=== PATIENT | male | born 1990 | race Caucasian/White ===

== ENCOUNTER 2018-11-22 12:10 | Inpatient (IN) ==
[2018-11-22] MEDS ORDERED: METOCLOPRAMIDE HCL INJ 5 MG/ML 2 ML VIAL IV STA (12:34)
[2018-11-22] MEDS ORDERED: SODIUM CHLORIDE 0.9% 1000ML 1,000 ML IV ONE ×2 (12:34→14:16)
[2018-11-22] MEDS ORDERED: DiphenhydrAMINE HCL 50 MG/ML VIAL IV STA (12:34)
[2018-11-22 13:00] LABS: iSTAT Ionized Calcium 1.1 mmol/l (1.12-1.32)
[2018-11-22] MEDS ORDERED: LACTATED RINGER'S 1,000 ML IV ONE (13:05)
[2018-11-22] MEDS ORDERED: PROCHLORPERAZINE 5 MG in SYRINGE 4 ML IV ONE (14:16)
[2018-11-22] MEDS ORDERED: PROCHLORPERAZINE 5 MG/ML 2 ML VIAL ONE (14:21)
--- NOTE | 2018-11-22 15:42 | Surgery Consultation ---
Date of Consultation November 22, 2018 Assessment & Plan (1) Intractable nausea and vomiting: Transverse colon stenosis, no significant obstruction. Abdomen is benign. Being admitted for IVF, anti-emetics. GI eval for eventual colonoscopy, inpatient or outpatient. Supervising Physician Co-Signing Physician Notes pnt S&E, labs and imaging reviewed, agree with above. 27 year old male with epigastric pain and nausea/vomiting, no diarrhea. Similar episode 2 weeks ago, also had single bloody bm. VSS, abd soft, ttp in epigastrium, no peritonitis. wbc elevated yesterday to 14, CT with transverse colon narrowing concerning for crohn's, no obstruction, free air or abscess. Mother with UC requring TPC and end ileostomy, grandmother with UC as well. No surgical intervention indicated at this time, dispo per ED and hospitalist. Recommend GI consult and colonoscopy. Surgery will sign off, call with questions or concerns. History of Present Illness History of Present Illness 27 y/o male with N/V sent to ED for dehydration. This is his second episode in the past month. The first was attributed to enteritis, improved after several days. He did have bloody BM at that time. Has not had recent BM, has had some flatus. His mother has ileostomy for UC. Allergies Allergy/AdvReac Type Severity Reaction Status Date / Time Penicillins Allergy Unknown RXN A Verified 11/22/18 13:03 BABY, HIS MOM SAYS HE IS NOT ALLERGIC Home Medications Home Medications Medication Instructions Recorded Confirmed Type No Known Home Medications 11/22/18 11/22/18 History Patient History Medical History Hx of hemorrhoids No significant past medical history Surgical History Hx of hernia repair History of lumbar fusion Family History Other Colon cancer Diverticulitis Ulcerative colitis Social History Preferred Language: Latvian marital status: Single Current Living Situation: Alone current occupational status: employed Feels Safe at Home: Yes Smoking Status: Never smoker Hx Alcohol Use: No Review of Systems Constitutional: no fever and no chills Gastrointestinal: + abdominal pain (upper abdomen), + nausea and + vomiting Physical Exam Vital Signs (Past 24 Hours): Last Vital Signs Temp 37.0 C 11/22/18 12:12 Pulse 81 11/22/18 14:00 Resp 22 11/22/18 14:00 BP 140/83 11/22/18 14:00 Pulse Ox 99 11/22/18 14:00 Cardiovascular: Rate/Rhythm: not tachycardic Gastrointestinal (Abdomen): Inspection/Auscultation: abdomen not distended Percussion/Palpation: + abdomen tender (mild mid upper abdomen) and abdomen soft Results & Data Diagnostic Findings CT abd pelvis IV con only CLINICAL HISTORY: 27 years-old Male presenting with DEHYDRATION,ACUTE ABD PAIN, CAN NOT TOLERATE ORAL CONTRAST. TECHNIQUE: Multidetector CT of the abdomen and pelvis was performed after the administration of intravenous contrast. IV contrast: 94 L of Optiray 320. One or more dose lowering techniques were used consistent with the principles of ALARA (as low as reasonably achievable), including automatic exposure control, mA or kV adjustment to individual patient size, and/or use of iterative reconstruction. COMPARISON: None. CT DOSE (mGy.cm): The estimated cumulative dose is 719.59 mGycm. FINDINGS: Patent Chemist topogram: Posterior lumbar fusion hardware from L4 to S1 with interbody spacers. Lung bases: Normal heart size. No pericardial or pleural effusion. No focal infiltrate or nodule at the lung bases. Liver: Normal morphology. Vague hypodensity along the fissure for the ligamentum teres.. Patent hepatic vasculature. Biliary: No intrahepatic or extrahepatic biliary ductal dilatation. Normal gallbladder. Pancreas: Moderate parenchymal atrophy. Spleen: Normal. Splenules noted. Adrenal glands: Normal. Kidneys and ureters: Well-defined hypodense lesion in the left kidney likely simple cyst. No nephrolithiasis or hydronephrosis. Ureters nondistended. Bladder: Incompletely evaluated secondary to underdistention. Pelvic organs: Prostate and seminal vesicles normal. Bowel: Apparent stenosis of the mid transverse colon with intramural fat deposition and prominence of the mesenteric fat (series 3 image 196). Mild upstream distention. The appendix is normal. The terminal ileum is normal. No gross evidence of small bowel wall thickening. No perienteric or pericolonic inflammatory change. No bowel obstruction. Peritoneal cavity: No free fluid or intraperitoneal gas. Lymph nodes: No enlarged lymph nodes in the abdomen or pelvis. Vasculature: Aorta and IVC patent and normal in caliber. Abdominal wall: Surgical clips noted in the right lower quadrant possibly indicating prior right inguinal hernia repair. Musculoskeletal: Postsurgical changes of bilateral transpedicular screw and bashir fixation of L4-S1 with interbody spacers and laminectomy defects. Expected postsurgical appearance of the lumbar subcutaneous incision site. IMPRESSION: 1. Apparent stenosis of the mid transverse colon with intramural fat deposition and prominence of surrounding mesenteric fat along with mild immediate upstream distention. 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 No convincing evidence of acute inflammation at this time. No penetrating disease. No bowel obstruction. 2. No appendicitis. Electronically signed by: Fabiano Coe M.D. 11/22/2018 11:19 AM (1) Intractable nausea and vomiting Vomiting type: unspecified Qualified Code(s): R11.2 - Nausea with vomiting, unspecified
[2018-11-22] MEDS ORDERED: methylPREDNISolone 125 MG/2 ML VIAL IV SCH (17:13)
--- NOTE | 2018-11-22 17:22 | History & Physical Report ---
Date of Service November 22, 2018 Assessment & Plan (1) Intractable nausea and vomitin27 y/o m who denies any medical history. Presented to the ER 2 weeks prior with nausea and vomiting thought due to enteritis. He was treated with IVF, antiemetics and subsequently DCd from the ER when he improved clinically. He states that the morning after he had a bowel movement with some gross blood which did not recur. He has had poor PO intake since DC, lower abdominal pain and less frequent bowel movements. He states that he has not had any bowel movements for 4 days now. The prior day he again developed nausea and vomiting and describes a possible low-grade fever as well. He returned to the ER and a CT of the abdomen was obtained which demonstrated apparent stenosis of the mid transverse, intramural fat and mild upstream distention. 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 The pt denies any long-term symptoms. It is noted that his mother has a history of UC with ileostomy placement. Initial labs are notable for hypokalemia. 1) N/V, abdominal pain - colonic stenosis on CT without complete obstruction or evidence of infection. We will begin treatment with IV steroids which can be converted to PO when tolerated. We have consulted gastroenterology as he will need a colonoscopy for diagnostic confirmation and may need to start a biologic. He will be treated with IVF, analgesics and antiemetics until tolerating PO, or may remain NPO if endoscopy is imminent. 2) Hpokalemia - replaced and Mg provided Full code - SCDs Total time for this admit including review of labs, meds, imaging, records - discussion with pt and ER attending - 40 min Present on Admission?: Yes History of Present Illness Chief Complaint: Intractable N/V Primary Care Provider: Kvng Gilliam Jr, DO 27 y/o m who denies any medical history. Presented to the ER 2 weeks prior with nausea and vomiting thought due to enteritis. He was treated with IVF, antiemetics and subsequently DCd from the ER when he improved clinically. He states that the morning after he had a bowel movement with some gross blood which did not recur. He has had poor PO intake since DC, lower abdominal pain and less frequent bowel movements. He states that he has not had any bowel movements for 4 days now. The prior day he again developed nausea and vomiting and describes a possible low-grade fever as well. He returned to the ER and a CT of the abdomen was obtained which demonstrated apparent stenosis of the mid transverse, intramural fat and mild upstream distention. 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 The pt denies any long-term symptoms. It is noted that his mother has a history of UC with ileostomy placement. 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[employer]" Family: Mother with UC, uncle with colon CA Allergies Allergy/AdvReac Type Severity Reaction Status Date / Time Penicillins Allergy Unknown RXN A Verified 11/22/18 13:03 BABY, HIS MOM SAYS HE IS NOT ALLERGIC Home Medications Home Medications Medication Instructions Recorded Confirmed Type No Known Home Medications 11/22/18 11/22/18 History Past Med/Surg History Medical History Hx of hemorrhoids No significant past medical history Surgical History Hx of hernia repair History of lumbar fusion Family History Other Colon cancer Diverticulitis Ulcerative colitis Social History Preferred Language: Malay Communication Ability: Effective Recreation Facility Attendant Required: No Beliefs That Will Affect Care: None marital status: Single Current Living Situation: Parent and Family current occupational status: employed Feels Safe at Home: Yes Smoking Status: Never smoker Hx Alcohol Use: No Hx Substance Use: No Review of Systems Gen: Reoprts a low grade fever (99.6 per PCP), denies night sweats, rigors, fatigue, malaise, weight loss/gain ENT: Denies congestion, throat pain, hearing loss Eyes: Denies acute visual changes CV: Denies CP, palpitations Pulmonary: Denies SOB, cough, wheezing GI:Has bnot had a BM for 4 days, poor leonid then n/v > 1 day. Lower abdominal pain x 2 months. Neuro: Denies acute or unilateral weakness, acute gait impairment, headache or acute visual changes Musculoskeletal: Denies joint pain, inflammation Endocrine: Denies polydipsia, polyuria Skin: Denies acute rashes or ulcers Physical Exam Vital Signs (Past 24 Hours): Last Vital Signs Temp 37.0 C 11/22/18 12:12 Pulse 83 11/22/18 17:02 Resp 16 11/22/18 17:02 BP 140/91 11/22/18 17:02 Pulse Ox 98 11/22/18 17:02 Physical Exam: General: AAO x 3, no distress ENT: No erythema or exudates, no thrush Eyes: LIS, EOMI Head and neck: Normocephalic, atraumatic, No JVD, neck is supple. Chest/heart: Nontender, S1,2, RRR, no murmurs, no gallops Lungs: CTAB, no wheezing or crackles Abdomen: Slightly firm without significant tenderness to light palpation Neuro: AAO x 3, speech is clear, no unilateral weakness or loss of sensation, coordination intact Musculoskeletal: No joint inflammation, muscle tenderness, FROM Skin: No acute rashes or ulcers Extremities: No clubbing, cyanosis, edema (1) Intractable nausea and vomiting Vomiting type: unspecified Qualified Code(s): R11.2 - Nausea with vomiting, unspecified
[2018-11-22] MEDS: POTASSIUM CHLORIDE / WTR 10 MEQ/100 ML PLCT IV SCH ×4 (17:28→22:25)
[2018-11-22] MEDS: D5W AND LACTATED RINGERS 1,000 ML IV SCH (17:29)
[2018-11-22] MEDS ORDERED: MAGNESIUM SULFATE / D5W 1 GM/100 ML BAG IV ONE (17:30)
--- NOTE | 2018-11-22 18:32 | Emergency Department Note ---
Entered by Sabiha Clemente acting as a scribe for History of Present Illness General Chief complaint: Dehydration Stated complaint: ULCER/CHRONS/HYDRATION Time Seen by Provider: 11/22/18 12:18 Source: patient History of Present Illness Onset (ago): week(s) 2 Location: abdomen Pain Consistency: + other (episode) Maximum Pain Intensity: 6 Quality: + other (dehydration) Relieved By: not by medication (Zofran, Phenergan) Associated symptoms: + denies other symptoms (change in color in bowel movements), + nausea/vomiting and + other (back pain, weight loss, cold sweats); no fever/chills (fever) The patient is a 27 year old male who presents to the Emergency Room with complaints of an episode of dehydration starting 2 weeks ago. The patient states that he was at the ED 2 weeks ago because he was having horrible vomiting and was unable to move his bowels. He states that they gave him some fluids and nausea medications. He states that while here he finally moved his bowels after 4 days and there was a little blood in it. He states that due to his history of hemorrhoids, they assumed it was from that. He reports that since then he has not had any hematochezia. The patient states that after leaving the ED it took 2-3 days to feel better. He reports that he was good for 5 days then before the symptoms started again. He states that he got in contact with Dr. Gilliam, his PCP, who had him do blood work yesterday and a CT today. He reports that he was supposed to be directly admitted to the hospital for his bowels narrowing, but was told that it couldn�t happen and he had to come to the ED for further testing. He notes that he has tried taking Zofran and Phenergan at home, but it has offered no relief. The patient complains of losing 40 lbs since March and 18 lbs in the last 2 months and cold sweats when he vomits. He notes that he had back surgery in September and everything was going well, but since vomiting, the pain has been exacerbated. He notes that he has been off pain medication for 3 weeks. The patient denies fever, change in color in his bowel movements, ever having a colonoscopy, and a history of bowel problems. Home Medications Home Medications Medication Instructions Recorded Confirmed Type No Known Home Medications 11/22/18 11/22/18 History Allergies Allergy/AdvReac Type Severity Reaction Status Date / Time Penicillins Allergy Unknown RXN A Verified 11/22/18 13:03 BABY, HIS MOM SAYS HE IS NOT ALLERGIC Past Med/Surg History Medical History Hx of hemorrhoids No significant past medical history Surgical History Hx of hernia repair History of lumbar fusion Family History Other Colon cancer Diverticulitis Ulcerative colitis Social History Preferred Language: Polish Communication Ability: Effective Drag Out Man Required: No Beliefs That Will Affect Care: None marital status: Single Current Living Situation: Parent and Family current occupational status: employed Feels Safe at Home: Yes Smoking Status: Never smoker Hx Alcohol Use: No Hx Substance Use: No Review of Systems See HPI for pertinent positives & negatives. and A total of 10 systems reviewed and were otherwise negative Physical Exam Vital Signs Vital Signs - 24 hr 11/22/18 12:12 11/22/18 12:55 11/22/18 13:00 Temperature 37.0 C Temperature Source Oral Sepsis Recent Fever Within 48 Hours Yes Sepsis Action Taken by Nursing No Action Required Pulse Rate 92 H 96 H 87 Pulse Rate [Finger] Pulse Rate from SpO2 Sensor 97 H 86 Respiratory Rate 20 16 29 H Respiratory Effort / Characteristics Non-Labored Respiratory Depth Normal Blood Pressure 130/92 Blood Pressure [Left Arm] Blood Pressure Mean 104 Blood Pressure Mean [Left Arm] Pulse Oximetry 99 99 95 Oxygen Delivery Method Room Air Room Air Room Air 11/22/18 13:24 11/22/18 13:30 11/22/18 14:00 Temperature Temperature Source Sepsis Recent Fever Within 48 Hours Sepsis Action Taken by Nursing Pulse Rate 77 78 81 Pulse Rate [Finger] Pulse Rate from SpO2 Sensor 78 80 82 Respiratory Rate 19 21 22 Respiratory Effort / Characteristics Respiratory Depth Blood Pressure 141/89 H 140/83 Blood Pressure [Left Arm] Blood Pressure Mean 106 102 Blood Pressure Mean [Left Arm] Pulse Oximetry 97 97 99 Oxygen Delivery Method Room Air Room Air Room Air 11/22/18 14:30 11/22/18 15:00 11/22/18 15:30 Temperature Temperature Source Sepsis Recent Fever Within 48 Hours Sepsis Action Taken by Nursing Pulse Rate 87 78 100 H Pulse Rate [Finger] Pulse Rate from SpO2 Sensor 87 78 99 H Respiratory Rate 17 19 24 Respiratory Effort / Characteristics Respiratory Depth Blood Pressure 132/82 Blood Pressure [Left Arm] Blood Pressure Mean 98 Blood Pressure Mean [Left Arm] Pulse Oximetry 97 96 98 Oxygen Delivery Method Room Air Room Air Room Air 11/22/18 16:00 11/22/18 16:09 11/22/18 17:02 Temperature Temperature Source Sepsis Recent Fever Within 48 Hours Sepsis Action Taken by Nursing Pulse Rate 85 83 Pulse Rate [Finger] Pulse Rate from SpO2 Sensor 87 Respiratory Rate 25 H 16 Respiratory Effort / Characteristics Respiratory Depth Blood Pressure 132/86 140/91 Blood Pressure [Left Arm] Blood Pressure Mean 101 Blood Pressure Mean [Left Arm] Pulse Oximetry 98 98 Oxygen Delivery Method Room Air Room Air Room Air 11/22/18 17:13 Temperature 37.0 C Temperature Source Oral Sepsis Recent Fever Within 48 Hours Sepsis Action Taken by Nursing Pulse Rate Pulse Rate [Finger] 72 Pulse Rate from SpO2 Sensor Respiratory Rate 19 Respiratory Effort / Characteristics Respiratory Depth Blood Pressure Blood Pressure [Left Arm] 132/81 Blood Pressure Mean Blood Pressure Mean [Left Arm] 98 Pulse Oximetry 97 Oxygen Delivery Method Room Air GENERAL: alert, ill appearing, well nourished, no distress, non-toxic EYE EXAM: normal conjunctiva, PERRL and EOM's grossly intact OROPHARYNX: no exudate, no erythema, lips, buccal mucosa, and tongue normal and mucous membranes are very dry NECK: supple, no nuchal rigidity, no adenopathy, non-tender LUNGS: Clear to auscultation. Normal chest wall mechanics HEART: no murmurs, S1 normal and S2 normal ABDOMEN: abdomen soft, non-tender, normo-active bowel sounds, no masses, no rebound or guarding. BACK: Back is symmetrical on inspection and there is no deformity, no midline tenderness, no CVA tenderness. SKIN: no rashes and no bruising UPPER EXTREMITIES: upper extremities are grossly normal. FROM, nml pulses b/l. LOWER EXTREMITIES: No pitting edema. FROM, nml pulses b/l. NEURO EXAM: Normal sensorium, cranial nerves II-XII grossly intact, normal speech, no gross weakness of arms, no gross weakness of legs. Course 1222: Past medical records reviewed. The patient was evaluated in room C8, and a complete history and physical examination were performed. 1353: I discussed the patient's case with Dr. Gilliam- HERMIOL. He feels that the patient needs to be admitted for continued IV hydration and a GI consult for his new diagnosis of Crohn's colitis. 1400: I reevaluated the patient and he is still nauseated. I updated him on his test results and the treatment plan. He verbally agrees and understands. 1426: I discussed the patient's case with Dr. Jai CHAUDHARY Hospitalist. He states that he will further manage the patient as long as GI is okay with keeping the patient here. 1435: I discussed the patient's case with YOLY Dasilva. She states that she will look at the CT and call Dr. Odom. 1448: I spoke to Dr. Jai Power again. He states that we need to clarify with surgery if pt requires surgical intervention due to the stenosis. 1459: I discussed the patient's case with REJI Murphy. He states that he will look at the patient's CT and call back. 1517: I discussed the patient's case with REJI Murphy again. He states that the patient does not need an urgent surgical procedure. He feels that the patient needs a GI ocnult and a colonoscopy. 1521: I updated Dr. Odom's PA on these consults at this time. 1535: I spoke to Dr. Escalona- General Surgeon. He evaluated the patient at bedside and agrees that he needs a GI consult. 1538: I reviewed the patient's case with Dr[facility]ai [facility]. He will evaluate the patient for further management. Consultations Consultation #1: I discussed the patient's case with Dr. Lisa AKHTAR. He feels that the patient needs to be admitted for continued IV hydration and a GI consult for his new diagnosis of Crohn's colitis. Time: 13:53 Consultation #2: I discussed the patient's case with Dr. Jai [facility]. He states that he will further manage the patient as long as GI is okay with keeping the patient here. Time: 14:26 Consultation #3: I discussed the patient's case with YOLY Dasilva. She states that she will look at the CT and call Dr. Odom to sort it all out. Time: 14:35 Additional Consultation(s): 1448: I spoke to Dr. Jai Orona again. He states that I should talk to surgery. 1459: I discussed the patient's case with Anderson Smith PA-C -General Surgery. He states that he will look at the patient's CT and call back. 1517: I discussed the patient's case with Anderson Smith PA-C -General Surgery again. He states that the patient does not need an urgent surgical procedure. He feels that the patient needs a GI ocnult and a colonoscopy. 1521: I updated Dr. Odom's PA on these consults at this time. 1535: I spoke to Dr. Escalona- General Surgeon. He evaluated the patient at bedside and agrees that he needs a GI ocnsult. 1538: I reviewed the patient's case with Dr. Jai CHAUDHARY Hospitalist. He will evaluate the patient for further management. Administered Medications Dextrose/Lactated Ringer's (D5w And Lactated Ringers) 1,000 mls @ 125 mls/hr IV .Q8H SHAMIR Stop: 11/23/18 17:29 Last Admin: 11/22/18 17:29 Dose: 125 mls/hr Documented by: [id number] Potassium Chloride (K Jesus / Wtr) 10 meq in 100 mls @ 100 mls/hr IV Q1H SHAMIR Stop: 11/22/18 21:29 Last Admin: 11/22/18 17:28 Dose: 100 mls/hr Documented by: [id number] Discontinued Medications Diphenhydramine HCl (Benadryl) 25 mg IV NOW STA Stop: 11/22/18 12:35 Last Admin: 11/22/18 12:48 Dose: 25 mg Documented by: [id number] Sodium Chloride (Nss 1000ml) 1,000 mls @ 999 mls/hr IV .Q1H1M ONE Stop: 11/22/18 13:34 Last Infusion: 11/22/18 13:28 Dose: 0 mls/hr Documented by: [id number] Admin: 11/22/18 12:47 Dose: 999 mls/hr Documented by: [id number] Lactated Ringer's (Lr) 1,000 mls @ 999 mls/hr IV .Q1H1M ONE Stop: 11/22/18 14:05 Last Infusion: 11/22/18 14:23 Dose: 0 mls/hr Documented by: [id number] Admin: 11/22/18 13:28 Dose: 999 mls/hr Documented by: [id number] Prochlorperazine 5 mg/ Syringe 5 mls @ 5 mls/min IV ONE ONE Stop: 11/22/18 14:17 Last Admin: 11/22/18 14:24 Dose: Not Given Documented by: [id number] Sodium Chloride (Nss 1000ml) 1,000 mls @ 999 mls/hr IV .Q1H1M ONE Stop: 11/22/18 15:16 Last Infusion: 11/22/18 15:33 Dose: 0 mls/hr Documented by: [id number] Admin: 11/22/18 14:23 Dose: 999 mls/hr Documented by: [id number] Metoclopramide HCl (Reglan) 10 mg IV NOW STA Stop: 11/22/18 12:35 Last Admin: 11/22/18 12:48 Dose: 10 mg Documented by: [id number] Prochlorperazine (Compazine) Confirm Administered Dose 10 mg .ROUTE .STK-MED ONE Stop: 11/22/18 14:22 Last Admin: 11/22/18 14:23 Dose: 5 mg Documented by: [id number] Medical Decision Making Differential Diagnosis Differential diagnosis: Etiologies such as gastroenteritis, food borne illness, infections, appendicitis, diverticulitis, inflammatory bowel disease, obstruction, GI bleed, biliary pathology, cardiac process, intracranial process, as well as others were entertained. Medical Records Attestation: I reviewed the patient's medical records. Home Medications Current Medication List: was personally reviewed by me Laboratory Data Attestation: I reviewed the patient's lab results. Lab Results 11/22/18 Range/Units 12:47 POC Hgb 17.0 (14.0-18.0) g/dl POC Hct 50 (42-52) % POC Sodium 137 (135-144) mEq/L POC Potassium 3.0 L (3.3-5.0) mEq/L POC Chloride 91 L (101-112) mEq/L POC Total CO2 28 (24-31) mEq/l POC Anion Gap 21.0 (16-25) mmol/L POC BUN 16 (7-18) mg/dl POC Creatinine 1.0 (0.6-1.3) mg/dl POC Glucose (other) 117 H (70-99) mg/dl POC Ioniz Calcium [place] 1.10 L (1.12-1.32) mmol/l Blood Pressure Blood Pressure Findings: Elevated blood pressure Blood Pressure Disposition: further management by hospitalist MDM Narrative Patient here appearing clinically dehydrated and ill-appearing, and on outpatient labs and imaging as ordered by the patient's PCP, patient found to have stenotic narrowing of the mid transverse colon with likely Crohn's colitis. This is a new diagnosis for the patient as he has never been diagnosed with any intestinal problems or had a colonoscopy previously. He does however have significant family history of ulcerative colitis and colon cancer. Patient here was hydrated with multiple liters of IV fluids and did receive several antiemetics in addition to the 2 different antiemetics he had tried at home without improvement. No evidence of DKA, AK I, acute electrolyte abnormality. No evidence of bacteremia/sepsis. I suspect given several recent episodes including one which prompted a ER visit of abdominal pain and nausea vomiting it was more likely related to the patient's undiagnosed Crohn's disease. I do not suspect bacteremia/sepsis. Case discussed with hospitalist. Concern for possible surgical intervention which would require transfer versus ability to medically manage here with GI input and likely colonoscopy. After several phone calls and discussions, patient to be admitted here medically with GI consult. Hospitalist will add additional orders after discussion including steroids. Patient was hemodynamically stable while in the emergency room. Impression & Plan Intractable nausea and vomiting, Abdominal pain, Recent weight loss, Stenosis of colon Discharge Plan Visit Data *Final* Discharge Date/Time: 11/22/18 17:02 Chief Complaint: Dehydration Stated Complaint: ULCER/CHRONS/HYDRATION ED Provider: Kamryn Escalante Discharge Problem: Intractable nausea and vomiting, Abdominal pain, Recent weight loss, Stenosis of colon Patient Disposition: Admitted As Inpatient Discharge Instructions Interventions: ED Discharge Assessment Last Done: 11/22/18 17:02 Discharge Problem: Intractable nausea and vomiting Qualifiers: Vomiting type: unspecified Qualified Code(s): R11.2 - Nausea with vomiting, unspecified Abdominal pain Qualifiers: Abdominal location: unspecified location Qualified Code(s): R10.9 - Unspecified abdominal pain The scribe's documentation has been prepared under my direction and personally reviewed by me in its entirety. I confirm that the note above accurately reflects all work, treatment, procedures, and medical decision making performed by me.
[2018-11-22] MEDS: methylPREDNISolone 40 MG in SYRINGE 0 ML IV SCH (19:28)
[2018-11-22] MEDS: MoRPHine SULFATE 4 MG/ML 1 ML CARP\\VIAL IV PRN (19:42)
[2018-11-22] MEDS ORDERED: ZOLPIDEM TARTRATE 5 MG TAB PO ONE (21:27)
[2018-11-23] MEDS: D5W AND LACTATED RINGERS 1,000 ML IV SCH ×2 (01:38→09:30)
[2018-11-23] MEDS: ONDANSETRON INJ 2 MG/ML 2 ML VIAL IV PRN ×2 (03:56→09:29)
[2018-11-23] MEDS: MoRPHine SULFATE 4 MG/ML 1 ML CARP\\VIAL IV PRN ×3 (04:21→18:24)
[2018-11-23] MEDS: methylPREDNISolone 40 MG in SYRINGE 0 ML IV SCH ×2 (06:37→18:28)
[2018-11-23 06:52] LABS: BUN Creatinine Ratio 11.8 (10-20); Calcium 8.4 mg/dl (8.5-10.1); Creatinine Clr Calc Pharmacy 139.4 ml/min; Est GFR (African American) 133.3; Magnesium 2.3 mg/dl (1.8-2.4); Potassium 3.7 mmol/L (3.5-5.1)
[2018-11-23 09:00] LABS: Albumin Level 3.7 gm/dl (3.4-5.0); Bilirubin Direct 0.2 mg/dl (0-0.2); Bilirubin,Total 1.3 mg/dl (0.2-1); Total Protein 7.1 gm/dl (6.4-8.2)
[2018-11-23] MEDS ORDERED: LAVAGE SOLUTION 4000ML PO SCH (09:00)
--- NOTE | 2018-11-23 10:26 | Medical Student Progress Note ---
Date of Service November 23, 2018 Efraín Chandra is a 27 year old male with a pmhx of back pain in hospital day 2 for intractable N/V. No acute events over night. Nausea has subsided and he has had no further episodes of vomiting. He had his first bowel movement in 4 days last night which he described as liquid and denied any blood in stool. He reports that he has decreased abdominal pain with start of prednisone, morphine and anti-emetics. When coming to the hospital, his pain ranged from 4-6 but now describes it as a 2. He reports getting only 2 hours of sleep last night even though he took Ambien. Assessment & Plan (1) Intractable nausea and vomiting: Efraín Chandra is a 27 y/o male with h/o back pain and no significant GI history who is in hospital day 2 for acute onset N/V that is now resolving. He started having mild n/v starting this summer and was at the [facility] ED 2 weeks ago for more significant N/V which was thought to be gastroenteritis. He was given IVF, antiemetics and sent home but then returned again 2 days ago for worsening N/V. He has had a 45 lb weight loss since the summer which he attributes to healthier diet, n/v and spinal surgery. Fhx is significant for mom-UC, aunt- colon cancer, maternal grandmother-diverticulitis and maternal grandmother- colonic tumor. 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 Ddx includes auto-immune inflammatory process, viral or bacterial infection, and malignancy. Significant family history, timeline, and CT findings suggest that patient has had a chronic inflammatory process likely CD which created fibrosis that resulted in a narrowing or obstruction through the GI tract leading to sx, though awaiting colonoscopy results. # N/V, abdominal pain -GI was consulted and pt. will be getting colonoscopy later today -Continue as NPO -Can discontinue the methylprednisolone 40 mg q12 hours as CT scan does not suggest any acute infection and to avoid steroid side effects -Continue morphine 2 mg IV q3H zofran 4 mg q6H prn for pain -Continue polyethylene glycol # Hypokalemia -Resolved Full code - SCDs Total time for this admit including review of labs, meds, imaging, records - discussion with pt and ER attending - 40 min Vomiting type: unspecified Qualified Code(s): R11.2 - Nausea with vomiting, unspecified Supervising Attestation I personally examined the patient and verified all gil points of history and exam, discussed case, and agree with decision making with Ruben Van MS2 Patient seen after colonoscopy, case discussed with Dr. Escobar. Absolutely nothing abnormal on colonoscopy, CT scan most likely false positive. Patient himself notes he still has a degree of nausea, he is only really been able to eat a little bit of shaved ice. Is mostly been feeling lousy for the last 2 weeks, believes it started with stomach bug. Does not really have any significant abdominal pain outside of his epigastrium, mostly just nausea and upper epigastric discomfort Vitals noted, in general he is awake alert oriented x3 fatigued appearing but otherwise in no distress. HEENT normal cephalic atraumatic mucous membranes are moist. Abdomen is soft nondistended not really any upper abdominal tender. Extremities show no sinus clubbing or edema. Skin shows no rashes no pallor or icterus. Intractable nausea and vomiting�fortunately he does not show any colonoscopy appearance of inflammatory bowel disease. Differential for this fairly broad, it may be inflammatory fallout from having had a fairly significant viral gastroenteritis (pathology such as post viral gastritis) or other nonspecific pathology for which supportive care would be the main treatment. In this respect we will give him a GI cocktail, add Pepcid, scheduled Zofran, continue IV fluids, and see how he does with clear liquids/advance as tolerated. GI is ordered a right upper quadrant ultrasound to evaluate for biliary pathology, this seems quite reasonable and we will anticipate results. If it is negative, and supportive care does not improve the situation, then an EGD may need to be warranted. Otherwise as above Subjective Review of Systems All systems reviewed & are unremarkable except as noted in HPI & below Physical Exam Vital Signs (Past 24 Hours): Last Vital Signs Temp 37.0 C 11/23/18 07:27 Pulse 75 11/23/18 07:27 Resp 18 11/23/18 07:27 BP 121/76 11/23/18 07:27 Pulse Ox 95 11/23/18 07:27 Constitutional: WD/WN, vitals as above Respiratory: normal respiratory effort, lungs clear to auscultation Cardiovascular: RRR, no murmur, no edema Rate/Rhythm: not tachycardic Gastrointestinal (Abdomen): Inspection/Auscultation: normal bowel sounds (hypoactive ); abdomen not distended Percussion/Palpation: + abdomen tender (mild mid upper abdomen) and abdomen soft Skin: no rashes, warm and dry Psychiatric: A+Ox3, euthymic affect
[2018-11-23] MEDS ORDERED: ONDANSETRON INJ 2 MG/ML 2 ML VIAL IV STA (14:01)
--- NOTE | 2018-11-23 15:01 | Consultation Report ---
DATE OF CONSULTATION: 11/23/2018 GASTROENTEROLOGY CONSULT NOTE REASON FOR CONSULTATION: Abdominal pain, nausea, vomiting, and abnormal CT scan. HISTORY OF PRESENT ILLNESS: The patient is a 27-year-old who for the last 2 weeks has been experiencing upper abdominal pain, nausea, and vomiting. He was seen in the Emergency Room 2 weeks ago and rehydrated and given some antiemetics and was released. He did okay for a few days, but then his symptoms started to come back, presented back to the Emergency Room early this morning with similar symptoms. He had a CAT scan at this time which showed a stenosis of the mid transverse colon with some proximal distention suggesting a stricture, possibly related to Crohn's disease. Of note is that his mother had a colectomy for ulcerative colitis in the past. GI consultation has been requested for evaluation. PAST MEDICAL HISTORY: Remarkable for lumbar disc disease. He has had 2 different operations on his back, one 10 years ago and then one a couple of months ago for fusion. HOME MEDICATIONS: Include Neurontin and OxyContin. He has not been on any aspirin or nonsteroidals. He is also on amitriptyline at home. ALLERGIES: PENICILLIN. FAMILY HISTORY: Remarkable for mother with ulcerative colitis, status post colectomy, also has a maternal grandmother with colon cancer. SOCIAL HISTORY: The patient works at [employer]. PAST SURGICAL HISTORY: Remarkable for right inguinal hernia repair with mesh in addition to his lumbar surgery. REVIEW OF SYSTEMS: Positive for upper abdominal pain and nausea. Remainder is negative. PHYSICAL EXAMINATION: GENERAL: The patient appears slightly pale, but in no acute distress. ABDOMEN: Shows right lower quadrant scar. Abdomen is soft. There is mild tenderness in the mid epigastric area. No mass or rebound. LUNGS: Clear. HEART: Showed a normal S1 and S2 with regular rate and rhythm without murmurs, rubs, or gallops. LABORATORY DATA: Laboratory shows a white count of 14.67. Bilirubin is 1.3. Most of it is indirect indicating he has Gilbert's. Liver profile is normal. Albumin is normal at 3.7. IMPRESSION: The patient is having abdominal pain, vomiting, and possible transverse colon stricture, possibly Crohn's disease. He is scheduled to undergo a colonoscopy later today for further evaluation.
--- NOTE | 2018-11-23 15:33 | Anesthesiology Consultation ---
Date of Service November 23, 2018 Assessment & Plan Chart Review Chart Review: Acceptable Risk for Surgery and Patient NOT seen in Pre Admission Testing Consults Requested none ASA ASA2 Proposed Anesthesia Anesthesia Type: MAC NPO Date Last Intake of Fluids: 11/22/18 Time Last Intake of Fluids: 00:00 Last Intake of Fluids Comment: Bowel Prep Date Last Intake of Solids: 11/22/18 Time Last Intake of Solids: 00:00 History Surgery Operation Date: 11/23/18 10:05 Proposed Procedures p Colonoscopy Jen Escobar Height/Weight Height: 5 ft 10 in Weight: 93.9 kg Allergies Allergy/AdvReac Type Severity Reaction Status Date / Time Penicillins Allergy Unknown RXN A Verified 11/22/18 13:03 BABY, HIS MOM SAYS HE IS NOT ALLERGIC Medications Home Medications Medication Instructions Recorded Confirmed Last Taken No Known Home Medications 11/22/18 11/22/18 Unknown Active Medications Generic Name Dose Route Start Last Admin Trade Name Freq PRN Reason Stop Dose Admin Methylprednisolone 40 mg/ 0.64 mls @ 1.5 mls/min 11/22/18 18:00 11/23/18 06:37 Syringe IV 12/22/18 17:59 1.5 mls/min Q12H SHAMIR Administration Dextrose/Lactated Ringer's 1,000 mls @ 125 mls/hr 11/22/18 17:30 11/23/18 09:30 D5w And Lactated Ringers IV 11/23/18 17:29 125 mls/hr .Q8H SHAMIR Administration Morphine Sulfate 2 mg 11/22/18 17:13 11/23/18 09:35 Morphine Sulfate IV 12/06/18 17:12 2 mg Q3H PRN Administration Pain Ondansetron HCl 4 mg 11/22/18 17:13 11/23/18 09:29 Zofran IV 12/22/18 17:12 4 mg Q6H PRN Administration Nausea Past Medical History Medical History Obese Hx of hemorrhoids No significant past medical history Past Family History Family History Other Colon cancer Diverticulitis Ulcerative colitis Past Surgical History Surgical History History of lumbar fusion Hx of hernia repair Past Anesthesia History No Hx of Anesthesia Complications and No Family Hx of Anesthesia Complications History of PONV No Motion Sickness Screening History of Motion Sickness: No Social History Smoking Status: Never smoker Do You Dip or Chew Tobacco: No Hx Alcohol Use: No Hx Substance Use: No Exercise / Class Metabolic Activity II 4-5 Yardwork/Stairs/Walk up hill Physical Exam Vital Signs Last Vital Signs Temp 36.8 C 11/23/18 15:00 Pulse 65 11/23/18 15:00 Resp 22 11/23/18 15:00 BP 114/84 11/23/18 15:00 Pulse Ox 98 11/23/18 15:00 Testing Chest X-Ray Date: 08/30/18 Findings: + NAD Laboratory Results 11/23/18 05:34
[2018-11-23] MEDS ORDERED: PROPOFOL IV EMULSION 10 MG/ML 20 ML VIAL IV ONE ×2 (15:59→17:03)
[2018-11-23] MEDS ORDERED: LABETALOL HCL IV 5 MG/ML 20ML IV PRN (16:01)
[2018-11-23] MEDS ORDERED: fentaNYL citrate 100 MCG/2 ML VIAL IV PRN (16:01)
[2018-11-23] MEDS ORDERED: ATROPINE SULFATE 0.1 MG/ML 10ML SYR IV PRN (16:01)
[2018-11-23] MEDS ORDERED: PHENYLEPHRINE 100MCG/ML 5ML SYR IV PRN (16:01)
[2018-11-23] MEDS ORDERED: ePHEDrine sulfate 50 MG/ML AMP IV PRN (16:01)
[2018-11-23] MEDS ORDERED: ONDANSETRON INJ 2 MG/ML 2 ML VIAL IV PRN (16:01)
--- NOTE | 2018-11-23 16:51 | GI REPORT ---
Patient Name: Efraín Chandra Procedure Date: 11/23/2018 4:25 PM Date of : 1990 Admit Type: Inpatient Age: 27 Gender: Male Attending MD: Trung Escobar MD Procedure: Colonoscopy Providers: Trung Escobar MD Referring MD: Referred Self Indications: Epigastric abdominal pain, Abnormal CT of the GI tract Medicines: General Anesthesia Complications: No immediate complications. Estimated Blood Loss: Estimated blood loss: none. Procedure: Pre-Anesthesia Assessment: - Prior to the procedure, a History and Physical was performed, and patient medications, allergies and sensitivities were reviewed. The patient's tolerance of previous anesthesia was reviewed. - The risks and benefits of the procedure and the sedation options and risks were discussed with the patient. All questions were answered and informed consent was obtained. After I obtained informed consent, the scope was passed under direct vision. Throughout the procedure, the patient's blood pressure, pulse, and oxygen saturations were monitored continuously. The scope was introduced through the anus and advanced to the terminal ileum. The colonoscopy was performed without difficulty. The patient tolerated the procedure well. The quality of the bowel preparation was good. Findings: The terminal ileum appeared normal. The entire examined colon appeared normal. Impression: - The examined portion of the ileum was normal. - The entire examined colon is normal. - No specimens collected. Recommendation: - [facility]. Trung Escobar M.D. Trung Escobar MD 11/23/2018 4:51:15 PM This report has been signed electronically. Note Initiated On: 11/23/2018 4:25 PM Number of Addenda: 0 I attest to the content of the Intraoperative Record and orders documented therein, exceptions below {[id number]}
--- NOTE | 2018-11-23 17:03 | Anesthesiology Progress Note ---
Date of Service November 23, 2018 Anesthesia Post Procedure Vital Signs Vital Signs: Temp Pulse Pulse Resp BP BP Pulse Ox 11/23/18 16:55 37.0 C 70 18 82/47 L 97 11/23/18 15:50 37.3 C 66 18 117/77 96 11/23/18 15:00 36.8 C 65 22 114/84 98 11/23/18 07:27 37.0 C 75 18 121/76 95 11/22/18 23:35 36.9 C 89 18 114/68 95 11/22/18 17:13 37.0 C 72 19 132/81 97 Pain Intensity Upper Abdomen: Pain Intensity: 1 Notes Mental Status: alert / awake / arousable Patient Amnestic to Procedure: Yes Nausea / Vomiting: adequately controlled Pain: adequately controlled Airway Patency, RR, SpO2: stable & adequate BP & HR: stable & adequate Hydration State: stable & adequate Anesthetic Complications: no major complications apparent and Pt Satisfied with anesthetic care
[2018-11-23] MEDS ORDERED: FAMOTIDINE 20MG/5ML IV PUSH IV STA (18:42)
[2018-11-23] MEDS ORDERED: FAMOTIDINE 20 MG in SYRINGE 3 ML IV ONE (18:45)
--- NOTE | 2018-11-23 19:03 | Progress Note ---
DATE: 11/23/2018 The patient underwent a colonoscopy into the terminal ileum this afternoon. Exam was carried about 15-20 cm into the ileum. The colon and ileum were completely normal. There was no evidence of any inflammation, Crohn's disease, or stricturing. IMPRESSION: The patient is having abdominal pain, nausea, and vomiting. His white count is elevated. At this point, I plan on getting an ultrasound to check for possible gallstones. Noticed no other pathology apparent on his CAT scan. Dr. David Marcelino will be covering for the weekend.
[2018-11-23] MEDS ORDERED: ALUMINUM/MAGNESIUM SUSP 18 ML, LIDOCAINE HCL VISCOUS 2% 6 ML, BARCODE IDENTIFIER 1 EA PO ONE (19:07)
[2018-11-23] MEDS: ONDANSETRON INJ 2 MG/ML 2 ML VIAL IV SCH (19:28)
[2018-11-23] MEDS: FAMOTIDINE 20 MG TAB PO SCH (21:07)
[2018-11-23] MEDS ORDERED: ZOLPIDEM TARTRATE 5 MG TAB PO PRN (23:42)
[2018-11-23] MEDS: LACTATED RINGER'S 1,000 ML IV SCH (23:55)
[2018-11-24] MEDS: MoRPHine SULFATE 4 MG/ML 1 ML CARP\\VIAL IV PRN ×2 (00:01→08:01)
[2018-11-24] MEDS: ONDANSETRON INJ 2 MG/ML 2 ML VIAL IV SCH ×4 (01:05→19:28)
[2018-11-24] MEDS: LACTATED RINGER'S 1,000 ML IV SCH ×2 (07:52→08:00)
[2018-11-24] MEDS: FAMOTIDINE 20 MG TAB PO SCH ×2 (08:01→21:23)
[2018-11-24 08:49] LABS: Basophils # (auto) 0.02 K/uL (0-0.2); Basophils % (auto) 0.2 %; Hematocrit (blood only) 41.6 % (42-52); Hemoglobin 14.2 g/dL (14.0-18.0); Immature Granulocytes # (auto) 0.02 K/uL (0.00-0.02); Immature Granulocytes % (auto) 0.2 %; Lymphocytes # (auto) 1.57 K/uL (1.2-3.4); Lymphocytes % (auto) 17.6 %; Mean Corpuscular Hgb Conc 34.1 g/dL (32-36); Mean Corpuscular Volume 85.8 fL (80-100); Mean Platelet Volume 10.3 fL (7.4-10.4); Monocytes # (auto) 1.27 K/uL (0.11-0.59); Monocytes % (auto) 14.3 %; Neutrophils # (auto) 6.03 K/uL (1.4-6.5); Neutrophils % (auto) 67.7 %; Platelet Count 258 K/uL (130-400); RDW Coefficient of Variation 12.9 % (11.5-14.5); RDW Standard Deviation 40.2 fL (36.4-46.3); Red Blood Count 4.85 M/uL (4.7-6.1); White Blood Count 8.91 K/uL (4.8-10.8)
--- NOTE | 2018-11-24 08:53 | Medical Student Progress Note ---
Date of Service November 24, 2018 Efraín Chandra is a 27 y/o male who is in hospital day 2 for acute onset intractable n/v that is now resolving. No acute events over night. He does not feel fevered but is mildly chilled. He has had no further episodes of emesis since having arrived to the hospital. He is mildly nauseous though reports that GI cocktail and Pepcid have helped releive his nausea and he feels less nauseous compared to yesterday. While talking to him, he is eating jello and reports being able to keep down liquids. He continues to feel some mild tenderness in the epigastric region. He reports gas but no bowel movements since 2 nights ago. He is urinating normally. Assessment & Plan (1) Intractable nausea and vomiting: Efraín Chandra is a 27 y/o male with h/o back pain and no significant GI history who is in hospital day 2 for relapsing acute onset N/V since ED visit for N/V 2 weeks prior that is now resolving . H/o low grade fever, mildly elevated WBC count, timeline of sx and negative colonoscopy results point most to post-viral infection. # N/V, abdominal pain -Can transition from liquid diet to soft foods as tolerated -Famotidine 20 mg b.i.d. -Can decrease LR -Continue morphine 2 mg IV q3H zofran 4 mg q6H prn for pain -GI ultrasound ordered to r/o possible biliary inflammation or obstruction # Hypokalemia -Resolved Full code - SCDs Total time for this admit including review of labs, meds, imaging, records - discussion with pt and ER attending - 40 min Vomiting type: unspecified Qualified Code(s): R11.2 - Nausea with vomiting, unspecified Supervising Attestation I personally examined the patient and verified all gil points of history and exam, discussed case, and agree with decision making with Ruben ROMO Feeling a little bit better today. He ate clears without much difficulty, he believes that he will be able to handle low-fat food well, although he doubts he will be able to eat very much. He still has a degree of epigastric pain but it is improving. He noted that the Pepcid and the GI cocktail did help significantly. His right upper quadrant ultrasound is negative. Case discussed with his mother at the bedside with his permission, all questions answered to the best of my ability and to their satisfaction. Ros negative except for as above Exam as above, in general he is in no distress. He is a bit fatigued. HEENT normocephalic atraumatic mucous members moist. Breathing is unlabored no accessory muscle use. Skin shows no rashes no pallor or icterus. Abdominal pain/intractable nausea and vomiting� -working diagnosis is that he initially had a viral syndrome and now has a lot of post viral inflammatory fallout (such as post viral gastritis). His overall negative workup would corroborate this thus far, and we will continue supportive care with Zofran, Pepcid, gradually advancing diet. Can give another GI cocktail if needed, the fact that he showed improvement with this as well as with the Pepcid does suggest mucosal pathology. As we advance his diet, if he does show significant difficulty with eating or regression with his nausea and vomiting, then an EGD would certainly be the next step. Should the EGD be low yield, the CT is suggested by GI to look for dynamic pathology, versus gastric emptying to look for the unlikely event of a post viral gastroparesis would need to be considered. Hopefully, however, he will just show gradual improvement and get back to his baseline over the next few weeks. We will look towards home once he is able to eat and drink well enough to do okay. Otherwise as above Subjective Review of Systems All systems reviewed & are unremarkable except as noted in HPI & below Physical Exam Vital Signs (Past 24 Hours): Last Vital Signs Temp 36.8 C 11/24/18 07:28 Pulse 68 11/24/18 07:28 Resp 18 11/24/18 07:28 BP 136/82 11/24/18 07:28 Pulse Ox 98 11/24/18 07:28 Constitutional: WD/WN, vitals as above Respiratory: normal respiratory effort, lungs clear to auscultation Cardiovascular: RRR, no murmur, no edema Rate/Rhythm: not tachycardic Gastrointestinal (Abdomen): normal bowel sounds, soft, nontender, no hepatosplenomegaly Inspection/Auscultation: abdomen not distended and + abnormal bowel sounds (hypoactive ) Percussion/Palpation: abdomen soft; abdomen nontender (mild mid upper abdomen) and no guarding Negative Corral sign Musculoskeletal: no cyanosis or clubbing, extremities motor strength 5/5 Skin: no rashes, warm and dry Psychiatric: A+Ox3, euthymic affect
[2018-11-24 09:41] LABS: BUN Creatinine Ratio 11.8 (10-20); Calcium 9.1 mg/dl (8.5-10.1); Creatinine Clr Calc Pharmacy 142.9 ml/min; Est GFR (African American) 134.2; Est GFR (Non-African American) 115.8; Potassium 3.6 mmol/L (3.5-5.1)
--- NOTE | 2018-11-24 10:24 | Gastroenterology Progress Note ---
Date of Service November 24, 2018 Assessment & Plan (1) Intractable nausea and vomiting: Overall better. Unclear diagnosis though the working diagnosis is a viral infection. What does not fit is the fact that he had a similar episode 3 weeks before and that he felt good until the very onset of vomiting with good appetite. If this recurs consider intermittent obstruction, angioedema etc in diagnosis. Consider EGD and CT enterography Subjective Overall better. Kept some po liquids down. Waiting USG today. Gastrointestinal: + abdominal pain (upper abdomen), + nausea and + vomiting Physical Exam Vital Signs (Past 24 Hours): Last Vital Signs Temp 36.8 C 11/24/18 07:28 Pulse 68 11/24/18 07:28 Resp 18 11/24/18 07:28 BP 136/82 11/24/18 07:28 Pulse Ox 98 11/24/18 07:28 Respiratory: normal respiratory effort, lungs clear to auscultation Cardiovascular: RRR, no murmur, no edema Gastrointestinal (Abdomen): Inspection/Auscultation: abdomen normal to inspection Percussion/Palpation: + abdomen tender and abdomen soft; no hepato megaly, no splenomegaly and no abdominal mass Skin: no rashes, warm and dry (1) Intractable nausea and vomiting Vomiting type: unspecified Qualified Code(s): R11.2 - Nausea with vomiting, unspecified
--- NOTE | 2018-11-24 15:18 | Ultrasound Report ---
ABDOMINAL ULTRASOUND, RIGHT UPPER QUADRANT HISTORY: RUQ US for abdominal pain/nausea ?GB pathology. COMPARISON: Abdomen and pelvis CT 11/22/2018. FINDINGS: Pancreas: The pancreatic tail is obscured by overlying bowel gas. The remaining portions of the pancr eas are within normal limits. Liver: Unremarkable. Gallbladder: No gallbladder wall thickening. No gallstones. CBD: 4 mm. Right kidney: No hydronephrosis. IMPRESSION: No significant abnormality identified within the right upper quadrant. Electronically signed by: Antolin Luo M.D. 11/24/2018 3:16 PM
[2018-11-25] MEDS: ONDANSETRON INJ 2 MG/ML 2 ML VIAL IV SCH ×2 (01:12→07:56)
[2018-11-25] MEDS: FAMOTIDINE 20 MG TAB PO SCH (07:56)
--- NOTE | 2018-11-25 18:44 | Discharge Summary ---
Date of Service November 25, 2018 Admission HPI Per Admitting Provider 27 y/o m who denies any medical history. Presented to the ER 2 weeks prior with nausea and vomiting thought due to enteritis. He was treated with IVF, antiemetics and subsequently DCd from the ER when he improved clinically. He states that the morning after he had a bowel movement with some gross blood which did not recur. He has had poor PO intake since DC, lower abdominal pain and less frequent bowel movements. He states that he has not had any bowel movements for 4 days now. The prior day he again developed nausea and vomiting and describes a possible low-grade fever as well. He returned to the ER and a CT of the abdomen was obtained which demonstrated apparent stenosis of the mid transverse, intramural fat and mild upstream distention. 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 The pt denies any long-term symptoms. It is noted that his mother has a history of UC with ileostomy placement. PMH: Denies Surgical: Denies Social: Does not drink or smoke - works in [email or web address] business [employer] Family: Mother with UC, uncle with colon CA Principal Diagnosis intractable nausea, vomiting - now tractable Discharge Data Allergies Allergy/AdvReac Type Severity Reaction Status Date / Time Penicillins Allergy Unknown RXN A Verified 11/22/18 13:03 BABY, HIS MOM SAYS HE IS NOT ALLERGIC Consultations 11/22/18 14:23 ED Decision to Admit Stat 11/22/18 17:13 Consult Gastroenterology Routine Procedures Performed Operation Date: 11/23/18 10:05 Actual Procedures p Colonoscopy(Not Applicable) - Trung Escobar [facility], [place] GI REPORT Signed Patient: XAVI CHANDRA AAdmit Date: 11/22/18 MR#: [id number] Phy: Rajesh Oliver D.O. Acct ID:[id number] Phy: Kvng Gilliam Jr, DO Date: 1990Fam Phy: Age: 27Location: 4W Sex: M Room/Bed: [facility] cc: ~ DICTATED BY: Trung Escobar M.D. Patient Name: Xavi Chandra Procedure Date: 11/23/2018 4:25 PM Date of : 1990 Admit Type: Inpatient Age: 27 Gender: Male Attending MD: Trung Escobar MD Procedure: Colonoscopy Providers: Trung Escobar MD Referring MD: Referred Self Indications: Epigastric abdominal pain, Abnormal CT of the GI tract Medicines: General Anesthesia Complications: No immediate complications. Estimated Blood Loss: Estimated blood loss: none. Procedure: Pre-Anesthesia Assessment: - Prior to the procedure, a History and Physical was performed, and patient medications, allergies and sensitivities were reviewed. The patient's tolerance of previous anesthesia was reviewed. - The risks and benefits of the procedure and the sedation options and risks were discussed with the patient. All questions were answered and informed consent was obtained. After I obtained informed consent, the scope was passed under direct vision. Throughout the procedure, the patient's blood pressure, pulse, and oxygen saturations were monitored continuously. The scope was introduced through the anus and advanced to the terminal ileum. The colonoscopy was performed without difficulty. The patient tolerated the procedure well. The quality of the bowel preparation was good. Findings: The terminal ileum appeared normal. The entire examined colon appeared normal. Impression: - The examined portion of the ileum was normal. - The entire examined colon is normal. - No specimens collected. Recommendation: - [facility]. Trung Escobar M.D. Ordered Studies 11/24/18 09:26 US abdomen limited Routine ABDOMINAL ULTRASOUND, RIGHT UPPER QUADRANT HISTORY: RUQ US for abdominal pain/nausea ?GB pathology. COMPARISON: Abdomen and pelvis CT 11/22/2018. FINDINGS: Pancreas: The pancreatic tail is obscured by overlying bowel gas. The remaining portions of the pancreas are within normal limits. Liver: Unremarkable. Gallbladder: No gallbladder wall thickening. No gallstones. CBD: 4 mm. Right kidney: No hydronephrosis. IMPRESSION: No significant abnormality identified within the right upper quadrant. CT abd pelvis IV con only CLINICAL HISTORY: 27 years-old Male presenting with DEHYDRATION,ACUTE ABD PAIN, CAN NOT TOLERATE ORAL CONTRAST. TECHNIQUE: Multidetector CT of the abdomen and pelvis was performed after the administration of intravenous contrast. IV contrast: 94 L of Optiray 320. One or more dose lowering techniques were used consistent with the principles of ALARA (as low as reasonably achievable), including automatic exposure control, mA or kV adjustment to individual patient size, and/or use of iterative reconstruction . COMPARISON: None. CT DOSE (mGy.cm): The estimated cumulative dose is 719.59 mGycm. 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 Lung bases: Normal heart size. No pericardial or pleural effusion. No focal infiltrate or nodule at the lung bases. Liver: Normal morphology. Vague hypodensity along the fissure for the ligamentum teres.. Patent hepatic vasculature. Biliary: No intrahepatic or extrahepatic biliary ductal dilatation. Normal gallbladder. Pancreas: Moderate parenchymal atrophy. Spleen: Normal. Splenules noted. Adrenal glands: Normal. Kidneys and ureters: Well-defined hypodense lesion in the left kidney likely simple cyst. No nephrolithiasis or hydronephrosis. Ureters nondistended. Bladder: Incompletely evaluated secondary to underdistention. Pelvic organs: Prostate and seminal vesicles normal. Bowel: Apparent stenosis of the mid transverse colon with intramural fat deposition and prominence of the mesenteric fat (series 3 image 196). Mild upstream distention. The appendix is normal. The terminal ileum is normal. No gross evidence of small bowel wall thickening. No perienteric or pericolonic inflammatory change. No bowel obstruction. Peritoneal cavity: No free fluid or intraperitoneal gas. Lymph nodes: No enlarged lymph nodes in the abdomen or pelvis. Vasculature: Aorta and IVC patent and normal in caliber. Abdominal wall: Surgical clips noted in the right lower quadrant possibly indicating prior right inguinal hernia repair. Musculoskeletal: Postsurgical changes of bilateral transpedicular screw and bashir fixation of L4-S1 with interbody spacers and laminectomy defects. Expected postsurgical appearance of the lumbar subcutaneous incision site. IMPRESSION: 1. Apparent stenosis of the mid transverse colon with intramural fat deposition and prominence of surrounding mesenteric fat along with mild immediate upstream distention. 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 No convincing evidence of acute inflammation at this time. No penetrating disease. No bowel obstruction. 2. No appendicitis. Lab Results 11/22/18 11/23/18 11/23/18 Range/Units 12:47 05:34 05:34 WBC (4.8-10.8) K/uL RBC (4.7-6.1) M/uL Hgb (14.0-18.0) g/dL POC Hgb 17.0 (14.0-18.0) g/dl Hct (42-52) % POC Hct 50 (42-52) % MCV (80-100) fL MCH (25-34) pg MCHC (32-36) g/dL RDW Std Deviation (36.4-46.3) fL RDW Coeff of Marcellus (11.5-14.5) % Plt Count (130-400) K/uL MPV (7.4-10.4) fL Immature Gran % (Auto) % Neut % (Auto) % Lymph % (Auto) % [place] % (Auto) % Eos % (Auto) % Baso % (Auto) % Immature Gran # (Auto) (0.00-0.02) K/uL Neut # (Auto) (1.4-6.5) K/uL Lymph # (Auto) (1.2-3.4) K/uL [place] # (Auto) (0.11-0.59) K/uL Eos # (Auto) (0-0.5) K/uL Baso # (Auto) (0-0.2) K/uL POC Sodium 137 (135-144) mEq/L Sodium 138 (136-145) mmol/L POC Potassium 3.0 L (3.3-5.0) mEq/L Potassium 3.7 (3.5-5.1) mmol/L POC Chloride 91 L (101-112) mEq/L Chloride 104 (98-107) mmol/L Carbon Dioxide 28 (21-32) mmol/L POC Total CO2 28 (24-31) mEq/l Anion Gap 6.0 (3-11) POC Anion Gap 21.0 (16-25) mmol/L POC BUN 16 (7-18) mg/dl BUN 11 (7-18) mg/dl Creatinine 0.90 (0.6-1.4) mg/dl POC Creatinine 1.0 (0.6-1.3) mg/dl Est Cr Clr Drug Dosing 139.4 ml/min Est GFR ( Amer) 133.3 Est GFR (Non-Af Amer) 115.0 BUN/Creatinine Ratio 11.8 (10-20) Glucose 135 H (70-99) mg/dl POC Glucose (other) 117 H (70-99) mg/dl Calcium 8.4 L D (8.5-10.1) mg/dl POC Ioniz Calcium [place] 1.10 L (1.12-1.32) mmol/l Magnesium 2.3 (1.8-2.4) mg/dl Total Bilirubin 1.3 H (0.2-1) mg/dl Direct Bilirubin 0.2 (0-0.2) mg/dl AST 24 (15-37) U/L ALT 39 (12-78) U/L Alkaline Phosphatase 56 (45-117) U/L Total Protein 7.1 D (6.4-8.2) gm/dl Albumin 3.7 (3.4-5.0) gm/dl Specimen Hemolysis Influenza Type A Ag (Neg) Influenza Type B Ag (Neg) 11/23/18 11/24/18 11/24/18 Range/Units 18:10 08:26 08:26 WBC 8.91 (4.8-10.8) K/uL RBC 4.85 (4.7-6.1) M/uL Hgb 14.2 (14.0-18.0) g/dL POC Hgb (14.0-18.0) g/dl Hct 41.6 L (42-52) % POC Hct (42-52) % MCV 85.8 (80-100) fL MCH 29.3 (25-34) pg MCHC 34.1 (32-36) g/dL RDW Std Deviation 40.2 (36.4-46.3) fL RDW Coeff of Marcellus 12.9 (11.5-14.5) % Plt Count 258 (130-400) K/uL MPV 10.3 (7.4-10.4) fL Immature Gran % (Auto) 0.2 % Neut % (Auto) 67.7 % Lymph % (Auto) 17.6 % [place] % (Auto) 14.3 % Eos % (Auto) 0.0 % Baso % (Auto) 0.2 % Immature Gran # (Auto) 0.02 (0.00-0.02) K/uL Neut # (Auto) 6.03 (1.4-6.5) K/uL Lymph # (Auto) 1.57 (1.2-3.4) K/uL [place] # (Auto) 1.27 H (0.11-0.59) K/uL Eos # (Auto) 0.00 (0-0.5) K/uL Baso # (Auto) 0.02 (0-0.2) K/uL POC Sodium (135-144) mEq/L Sodium 140 (136-145) mmol/L POC Potassium (3.3-5.0) mEq/L Potassium 3.6 (3.5-5.1) mmol/L POC Chloride (101-112) mEq/L Chloride 104 (98-107) mmol/L Carbon Dioxide 29 (21-32) mmol/L POC Total CO2 (24-31) mEq/l Anion Gap 7.0 (3-11) POC Anion Gap (16-25) mmol/L POC BUN (7-18) mg/dl BUN 10 (7-18) mg/dl Creatinine 0.87 (0.6-1.4) mg/dl POC Creatinine (0.6-1.3) mg/dl Est Cr Clr Drug Dosing 142.9 ml/min Est GFR ( Amer) 134.2 Est GFR (Non-Af Amer) 115.8 BUN/Creatinine Ratio 11.8 (10-20) Glucose 92 (70-99) mg/dl POC Glucose (other) (70-99) mg/dl Calcium 9.1 (8.5-10.1) mg/dl POC Ioniz Calcium [place] (1.12-1.32) mmol/l Magnesium (1.8-2.4) mg/dl Total Bilirubin (0.2-1) mg/dl Direct Bilirubin (0-0.2) mg/dl AST (15-37) U/L ALT (12-78) U/L Alkaline Phosphatase (45-117) U/L Total Protein (6.4-8.2) gm/dl Albumin (3.4-5.0) gm/dl Specimen Hemolysis Influenza Type A Ag Neg for Influ A (Neg) Influenza Type B Ag Neg for Influ B (Neg) Hospital Course (1) Intractable nausea and vomitin27 y/o m who denies any medical history. Presented to the ER 2 weeks prior with nausea and vomiting thought due to enteritis. He was treated with IVF, antiemetics and subsequently DCd from the ER when he improved clinically. He states that the morning after he had a bowel movement with some gross blood which did not recur. He has had poor PO intake since DC, lower abdominal pain and less frequent bowel movements. He states that he has not had any bowel movements for 4 days now. The prior day he again developed nausea and vomiting and describes a possible low-grade fever as well. He returned to the ER and a CT of the abdomen was obtained which demonstrated apparent stenosis of the mid transverse, intramural fat and mild upstream distention. 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 The pt denies any long-term symptoms. It is noted that his mother has a history of UC with ileostomy placement. Initial labs are notable for hypokalemia. 1) N/V, abdominal pain - Abdominal pain/intractable nausea and vomiting� -working diagnosis is that he initially had a viral syndrome and now has a lot of post viral inflammatory fallout (such as post viral gastritis). His overall negative workup would corroborate this thus far, and we will continue supportive care with Zofran, Pepcid, gradually advancing diet. Now tolerating low fat diet and feel safe/stable to go home. If he shows regression with his nausea and vomiting, then an EGD would certainly be the next step. Should the EGD be low yield, the CT is suggested by GI to look for dynamic pathology, versus gastric emptying to look for the unlikely event of a post viral gastroparesis would need to be considered. Hopefully, however, he will just show gradual improvement and get back to his baseline over the next few weeks. Home on pepcid BID x next 7 days scheduled, then following 7 days BID prn, prn zofran. 2) Hpokalemia - replaced and Mg provided Full code - SCDs Total time for this admit including review of labs, meds, imaging, records - discussion with pt and ER attending - 40 min Total Time Total Time Spent Total Time Spent (In Minutes): >30 Discharge Plan Discharge Items Patient Disposition: Home - Self-Care Reason For Visit: COLONIC STENOSIS,LIKELY IBD Discharge Diagnosis: intractable nausea/vomiting - likely from post-viral gastritis Discharge Goals: Decrease discomfort, Diagnostic testing and Therapeutic intervention Activity: Resume your previous activity Non-emergency contact: Primary Care Provider Call non-emergency contact if: you have any medication questions, your symptoms worsen, your pain is concerning for you and your temperature is above 101 Follow-up/Referrals: Kvng Gilliam Jr, DO [Primary Care Provider] - Diet: Regular Addtl Provider Instructions: post viral gastritis -given that your symptoms began fairly abruptly, and were initially consistent with a stomach virus, the "working diagnosis" at this time is that you had a bad stomach bug and now have what is called post-viral gastritis. if you think of an ulcer as a "gouge" then gastritis is like a "brush burn" of the lining of your stomach - since the stomach can't really generate many different sensations, pain/nausea are the most common things the stomach sends back to the brain when there is any kind of inflammatory/breakdown of the lining -fortunately the initial concern of findings consistent with inflammatory bowel disease on the ER CT scan were unfounded - with the colonoscopy being totally normal, it was a false positive on CT -the gallbladder ultrasound was done more because gallbladder disease is a common reason for people to have intractable nausea and vomiting than anything fitting with your particular symptom complex -- and it was quite normal as well -with the working diagnosis of post-viral gastritis, the expectation would be that over the next week or two, you'll gradually get back to feeling like your normal self. if you regress/worsen, or see that you've "hit a ceiling" of improvement that just isn't getting better, then further workup (as outlined below) will be necessary (but most likely you're going to just have ongoing gradual improvement back to "good as new" -take the pepcid (famotidine) twice a day regularly for the next 7 days, for the following 7 days after that, take it up to twice a day as needed, but have a "zero threshold" (or a low bar) of deciding that it is needed. by the end of 14 days, if you're still needing it regularly, or not feeling most/all the way back to good, then we'll need to work things up further -take either the zofran (ondansetron) or previously prescribed phenergan (promethazine) up to every six hours as needed for nausea -if you're not getting better/if you get worse - the next step would be to do an EGD (upper endoscopy) to see if there's something worse than just gastritis at play (such as an ulcer) -- the main thing this would do is let us know that we need to escalate acid suppression above the pepcid (to something like prilosec or protonix) and also that the "normal" time course to getting better would be a bit longer. if you weren't getting better and the EGD was normal, that would be where we would be getting "out in the weeds" in rare and unlikely diagnoses (like a post viral gastroparesis - where stomach doesn't empty the way it should, or SMA syndrome or other "dynamic obstructions" where the anatomy of how intestines and blood vessels overlap can cause transient blockages of bowel -- these are all 1 in a million type things, though, and most likely you won't have to worry about any of them) Prescriptions: New famotidine [Pepcid] 20 mg tablet 20 mg PO BID Qty: 20 RF: 0 ondansetron 4 mg tablet,disintegrating 4 mg PO QID PRN (Reason: nausea and vomiting) Qty: 20 RF: 0 No Action No Known Home Medications RF: 0 Stand-Alone Forms: [facility] Discharge Orders: Discharge Order (Routine); Ordered 11/25/18 Ordered By: Rajesh Oliver Admission Data Admit Date/Time: 11/22/18 16:34 Attending Provider: Rajesh Oliver Admit Provider: Mychal Odom Primary Care Provider: Kvng Gilliam Jr Other Providers: Mychal Odom ; Trung Escobar Service: Medical Other Interventions: Discharge Summary Assessment (RN) Last Done: 11/25/18 11:31 DC Date/Time DO NOT enter until pt leaves facility: 11/25/18 13:00
== END 2018-11-25 13:00 | disposition home or self-care (01) | DRG 392 ==
LOC: ED 12:10 → SUATTDRO 16:34 → 4W 16:34

== ENCOUNTER 2021-02-25 08:07 | Inpatient (IN) ==
[2021-02-25] MEDS ORDERED: SODIUM CHLORIDE 0.9% 1000ML 1,000 ML IV STA (08:31)
[2021-02-25] MEDS ORDERED: ONDANSETRON INJ 2 MG/ML 2 ML VIAL IV STA (08:31)
[2021-02-25 08:57] LABS: Hematocrit (blood only) 45.3 % (42-52); Hemoglobin 16.1 g/dL (14.0-18.0); Mean Corpuscular Hemoglobin 29.3 pg (25-34); Mean Corpuscular Hgb Conc 35.5 g/dL (32-36); Mean Corpuscular Volume 82.4 fL (80-100); Mean Platelet Volume 9.6 fL (7.4-10.4); Platelet Count 276 K/uL (130-400); RDW Coefficient of Variation 12.4 % (11.5-14.5); White Blood Count 14.21 K/uL (4.8-10.8)
[2021-02-25 09:14] LABS: Albumin Level 4.6 gm/dl (3.4-5.0); BUN Creatinine Ratio 21.6 (10-20); Calcium 9.3 mg/dl (8.5-10.1); Creatinine Clr Calc Pharmacy 116.5 ml/min; Est GFR (African American) 123.8 ml/min; Est GFR (Non-African American) 106.9 ml/min; Potassium 2.6 mmol/L (3.5-5.1)
[2021-02-25 09:19] LABS: Albumin Globulin Ratio 1.3 (0.9-2); Bilirubin,Total 1.7 mg/dl (0.2-1); Globulin 3.7 gm/dl (2.5-4.0); Total Protein 8.3 gm/dl (6.4-8.2)
[2021-02-25 09:27] LABS: Immature Granulocytes # (auto) 0.05 K/uL (0.00-0.02); Immature Granulocytes % (auto) 0.4 %; Lymphocytes # (auto) 2.14 K/uL (1.2-3.4); Lymphocytes % (auto) 15.1 %; Monocytes % (auto) 5.6 %; Neutrophils # (auto) 11.22 K/uL (1.4-6.5); Neutrophils % (auto) 78.9 %
[2021-02-25] MEDS ORDERED: OPTIRAY 320 150ml IV ONE (09:27)
--- NOTE | 2021-02-25 09:57 | CT Scan Report ---
ABDOMEN AND PELVIS CT WITH IV CONTRAST CT DOSE: 745.23 mGycm HISTORY: Acute generalized abdominal pain with nausea and vomiting abd pain TECHNIQUE: Multiaxial CT images of the abdomen and pelvis were performed following the IV administrat ion of 100 cc of Optiray, A dose lowering technique was utilized adhering to the principles of ALARA . COMPARISON STUDY: CT abdomen and pelvis 11/22/2018 FINDINGS: The imaged inferior cardiac chambers are unremarkable. Clear lung bases. No pneumatosis or pneumoperi toneum. Benign-appearing unchanged 12 mm hypodense lesion of the peripheral superior spleen. Mild gen eralized pancreatic atrophy. Unremarkable adrenal glands. Contracted gallbladder. Unremarkable liver. Patency of the hepatic and portal veins. 1.7 cm cyst of the inferior pole left kidney. No hydronephr osis. Unremarkable urinary bladder and prostate. Aorta and IVC are within normal limits. No adenopath y. Surgical clips of the right inguinal tissues. No bowel obstruction or bowel wall thickening. Normal appendix. No ascites or mesenteric inflammation . Unremarkable soft tissues. No acute fracture. Prior posterior decompression with posterior interbod y bashir and screw fusion and discectomy at L4-S1. There is no evidence of hardware complication. IMPRESSION: 1. No acute intra-abdominal or intrapelvic abnormality. 2. No bowel obstruction or bowel wall thickening. Normal appendix. ACT 112: Negative or not required by law. The above report was generated using voice recognition software. It may contain grammatical, syntax o r spelling errors. Electronically signed by: Christo Mack M.D. 02/25/2021 9:55 AM
[2021-02-25 10:46] LABS: Appearance Urine Clear (Clear); Bacteria Urine Automated Negative (Negative); Bilirubin Urine Negative (Negative); Blood Urine Trace (Negative); Cast Urine Automated 0 /lpf (0-5); Color Urine Yellow; Epithelial Cell Urine Auto 0-5 /lpf (0-5); Glucose Urine UA Negative (Negative); Ketones Urine Trace (Negative); Leukocyte Esterase Urine Negative (Negative); Nitrite Urine Negative (Negative); Protein Urine Negative (Negative); RBC Urine Automated 0-4 /hpf (0-4); Specific Gravity Urine > 1.045 (1.000-1.030); Urobilinogen Urine Negative (Negative); WBC Urine Automated 0 /hpf (0-5); pH Urine 7.5 (4.5-7.5)
[2021-02-25] MEDS ORDERED: SODIUM CHLORIDE 0.9% 1000ML 1,000 ML IV ONE (11:40)
[2021-02-25] MEDS ORDERED: PROMETHAZINE 25 MG/51 ML BAG IV STA (11:40)
[2021-02-25] MEDS ORDERED: POTASSIUM CHLORIDE CRTAB 20 MEQ TABCR PO STA (11:41)
--- NOTE | 2021-02-25 11:57 | Emergency Department Note ---
History of Present Illness General Chief complaint: Vomiting Stated complaint: VOMITING SINCE MON NIGHT,DEHYDRATED Time Seen by Provider: 02/25/21 08:18 History of Present Illness Maximum Pain Intensity: 3 30-year-old male who presents to the emergency department with complaint of generalized abdominal pain, nausea and vomiting for the past 4 days. The patient reports that he has not had an appetite, and reports that anything that he eats or drinks right now just comes right back up. The patient reports that he has had this in the past, and had to be admitted to our facility. The patient reports that on his last admission, he did have a normal colonoscopy performed by Dr. Escobar. He also reports that his gallbladder was normal as well on that visit. The patient has not had any further follow-up with Dr. Escobar since that time. The patient rates his abdominal discomfort a 3 out of 10. Home Medications Medication Instructions Recorded Confirmed Type No Known Home Medications 11/22/18 02/25/21 History Allergies Allergy/AdvReac Type Severity Reaction Status Date / Time Penicillins Allergy Unknown RXN A Verified 11/22/18 13:03 BABY, HIS MOM SAYS HE IS NOT ALLERGIC Past Med/Surg History Medical History Hx of hemorrhoids Obese Surgical History History of colonoscopy History of lumbar fusion Hx of hernia repair Family History Other Colon cancer Diverticulitis Ulcerative colitis Social History Smoking Status: Never smoker Hx Alcohol Use: No Hx Substance Use: No Preferred Language: Spanish Communication Ability: Effective Manager Home Healthcare Required: No Beliefs That Will Affect Care: None marital status: Single Current Living Situation: Parent and Family current occupational status: employed Feels Safe at Home: Yes Assistive Devices: None Review of Systems 10 system review was performed and was negative except for pertinent positives and negatives as indicated in history of present illness Physical Exam Vital Signs Vital Signs - 24 hr 02/25/21 08:15 02/25/21 10:25 02/25/21 11:00 Temperature 36.9 C Temperature Source Temporal Artery Scan Pulse Rate 75 Pulse Rate [Right Finger] 63 61 Pulse Rhythm [Right Finger] Regular Regular Pulse Strength [Right Finger] Normal Normal Respiratory Rate 18 18 18 Respiratory Effort / Characteristics Non-Labored Spontaneous Non-Labored Spontaneous Non-Labored Spontaneous Respiratory Depth Normal Normal Normal Respiratory Pattern Regular Regular Regular Blood Pressure 132/90 Blood Pressure [Right Arm] 132/86 126/80 Blood Pressure Mean 104 Blood Pressure Mean [Right Arm] 101 95 Blood Pressure Position Sitting Blood Pressure Position [Right Arm] Lying Lying Pulse Oximetry 98 97 97 Oxygen Delivery Method Room Air Room Air Room Air Sepsis Recent Fever Within 48 Hours No Sepsis New/Unexplained Change in Mental Status N/A Sepsis Action Taken by Nursing No Action Required 02/25/21 12:12 02/25/21 13:08 Temperature Temperature Source Pulse Rate Pulse Rate [Right Finger] 59 L 62 Pulse Rhythm [Right Finger] Regular Regular Pulse Strength [Right Finger] Normal Normal Respiratory Rate 18 18 Respiratory Effort / Characteristics Non-Labored Spontaneous Non-Labored Spontaneous Respiratory Depth Normal Normal Respiratory Pattern Regular Regular Blood Pressure Blood Pressure [Right Arm] 126/83 136/87 Blood Pressure Mean Blood Pressure Mean [Right Arm] 97 103 Blood Pressure Position Blood Pressure Position [Right Arm] Sitting Lying Pulse Oximetry 97 96 Oxygen Delivery Method Room Air Room Air Sepsis Recent Fever Within 48 Hours Sepsis New/Unexplained Change in Mental Status Sepsis Action Taken by Nursing CONSTITUTIONAL: Healthy and well nourished. Alert and oriented X 3. Patient appears in moderate discomfort from nausea. HEENT: Normocephalic, atraumatic. No scleral icterus or conjunctival injection. Mucous membranes are dry. NECK: Full active range of motion without discomfort. No JVD or carotid bruits. LYMPHATICS: No cervical chain adenopathy. RESPIRATORY: Clear to auscultation bilaterally with no wheezing, crackles, rhonchi or stridor. CARDIOVASCULAR: Regular rate and rhythm with no murmurs, rubs or gallops. GASTROINTESTINAL: Bowel sounds present in all quadrants. Patient has generalized and nonfocal tenderness to palpation of the abdomen. Negative McBurney's point tenderness. Negative CVA tenderness. No abdominal rigidity, guarding or rebound. MUSCULOSKELETAL: Full range of motion of all joints without discomfort. INTEGUMENTARY: No rash or other significant dermatologic conditions noted. HEMATOLOGIC: No ecchymosis or petechiae. PSYCHIATRIC: Positive affect. NEUROLOGIC: No focal neurologic deficits noted. Course Course Patient history and physical exam were performed. Nurses notes were reviewed. Vital signs were reviewed and were grossly normal. I also reviewed prior medical records, showing that the patient was admitted and November 2018 with similar symptoms. He had a CT scan at that time suggesting a stenosis of the mid transverse colon with some proximal distention suggestive of a stricture, possibly related to Crohn's disease. It is noted that the patient's mother had a colectomy for ulcerative colitis in the past. The patient was evaluated by Dr. Escobar while admitted, undergoing a colonoscopy that was normal. Dr. Escobar also performed a gallbladder ultrasound which was also normal. Upon further questioning, the patient reports that he has not had any similar symptoms since his last admission. IV access was established, and labs were drawn. The patient was hydrated with a liter of normal saline, and administered IV Zofran. Review of labs shows a potassium of 2.6, sodium 132 and glucose of 128. Patient also has a moderate leukocytosis with a white count of 14.21 with left shift and bandemia. Creatinine is normal. Urinalysis is not consistent with infection. PCR COVID- [address] with IV contrast of the abdomen and pelvis was normal. Upon reevaluation, the patient still had nausea, and was administered IV Phenergan. Findings were discussed with the patient. Given his potassium level, I recommended hospitalist evaluation for repletion. The patient was in agreement. The patient was ordered a K rider 20 mEq, along with oral potassium chloride 40 mEq. The case was then discussed with Dr. Norwood, [facility] hospitalist, for further evaluation. Please see their dictation for further treatment and final disposition. Administered Medications Discontinued Medications Sodium Chloride (Nss 1000ml) 1,000 mls @ 999 mls/hr IV .Q1H1M STA Stop: 02/25/21 09:31 Last Infusion: 02/25/21 09:44 Dose: 0 mls/hr Documented by: [id number] Admin: 02/25/21 08:44 Dose: 999 mls/hr Documented by: [id number] Promethazine HCl (Phenergan) 25 mg in 51 mls @ 204 mls/hr IV NOW STA Stop: 02/25/21 11:54 Last Infusion: 02/25/21 12:26 Dose: 0 mls/hr Documented by: [id number] Admin: 02/25/21 12:09 Dose: 204 mls/hr Documented by: [id number] Sodium Chloride (Nss 1000ml) 1,000 mls @ 999 mls/hr IV .Q1H1M ONE Stop: 02/25/21 12:40 Last Admin: 02/25/21 12:09 Dose: 999 mls/hr Documented by: [id number] Potassium Chloride (K Jesus / Wtr) 10 meq in 100 mls @ 100 mls/hr IV Q1H SHAMIR Stop: 02/25/21 13:44 Last Admin: 02/25/21 13:09 Dose: 100 mls/hr Documented by: [id number] Infusion: 02/25/21 13:09 Dose: 100 mls/hr Documented by: [id number] Admin: 02/25/21 12:09 Dose: 100 mls/hr Documented by: [id number] Ioversol (Optiray 320 150ml) 100 ml IV ONCE ONE Stop: 02/25/21 09:28 Last Admin: 02/25/21 09:27 Dose: 100 ml Documented by: [id number] Ondansetron HCl (Ondansetron Inj 2 Mg/Ml 2 Ml Vial) 4 mg IV NOW STA Stop: 02/25/21 08:32 Last Admin: 02/25/21 08:44 Dose: 4 mg Documented by: [id number] Potassium Chloride (Potassium Chloride Crtab 20 Meq Tabcr) 40 meq PO NOW STA Stop: 02/25/21 11:42 Last Admin: 02/25/21 12:09 Dose: 40 meq Documented by: [id number] Medical Decision Making Medical Records Attestation: I reviewed the patient's medical records. Home Medications Current Medication List: was personally reviewed by me Laboratory Data Attestation: I reviewed the patient's lab results. Result diagrams: 02/25/21 08:44 02/25/21 08:44 Lab Results 02/25/21 02/25/21 02/25/21 Range/Units 08:44 08:44 10:26 WBC 14.21 H (4.8-10.8) K/uL RBC 5.50 (4.7-6.1) M/uL Hgb 16.1 (14.0-18.0) g/dL Hct 45.3 (42-52) % MCV 82.4 (80-100) fL MCH 29.3 (25-34) pg MCHC 35.5 (32-36) g/dL RDW Std Deviation 37.0 (36.4-46.3) fL RDW Coeff of Marcellus 12.4 (11.5-14.5) % Plt Count 276 (130-400) K/uL MPV 9.6 (7.4-10.4) fL Immature Gran % (Auto) 0.4 % Neut % (Auto) 78.9 % Lymph % (Auto) 15.1 % Kent % (Auto) 5.6 % Eos % (Auto) 0.0 % Baso % (Auto) 0.0 % Neut # (Auto) 11.22 H (1.4-6.5) K/uL Lymph # (Auto) 2.14 (1.2-3.4) K/uL Kent # (Auto) 0.80 H (0.11-0.59) K/uL Eos # (Auto) 0.00 (0-0.5) K/uL Baso # (Auto) 0.00 (0-0.2) K/uL Immature Gran # (Auto) 0.05 H (0.00-0.02) K/uL Sodium 132 L (136-145) mmol/L Potassium 2.6 L (3.5-5.1) mmol/L Chloride 92 L (98-107) mmol/L Carbon Dioxide 33 H (21-32) mmol/L Anion Gap 7.0 (3-11) BUN 20 H (7-18) mg/dl Creatinine 0.94 (0.6-1.4) mg/dl Est Cr Clr Drug Dosing 116.5 ml/min Est GFR ( Amer) 123.8 ml/min Est GFR (Non-Af Amer) 106.9 ml/min BUN/Creatinine Ratio 21.6 H (10-20) Glucose 128 H (70-99) mg/dl Calcium 9.3 (8.5-10.1) mg/dl Total Bilirubin 1.7 H (0.2-1) mg/dl AST 17 (15-37) U/L ALT 26 (12-78) U/L Alkaline Phosphatase 50 (45-117) U/L Total Protein 8.3 H (6.4-8.2) gm/dl Albumin 4.6 (3.4-5.0) gm/dl Globulin 3.7 (2.5-4.0) gm/dl Albumin/Globulin Ratio 1.3 (0.9-2) Lipase 325 (73-393) U/L Urine Color Yellow Urine Appearance Clear (Clear) Urine pH 7.5 (4.5-7.5) Ur Specific [place] > 1.045 H (1.000-1.030) Urine Protein Negative (Negative) Urine Glucose (UA) Negative (Negative) Urine Ketones Trace H (Negative) Urine Blood Trace H (Negative) Urine Nitrite Negative (Negative) Urine Bilirubin Negative (Negative) Urine Urobilinogen Negative (Negative) Ur Leukocyte Esterase Negative (Negative) Urine WBC (Auto) 0 (0-5) /hpf Urine RBC (Auto) 0-4 (0-4) /hpf U Hyaline Cast (Auto) 0 (0-5) /lpf U Epithel Cells (Auto) 0-5 (0-5) /lpf Urine Bacteria (Auto) Negative (Negative) COVID-19 Eval Order SARS-CoV-2 (PCR) (Negative) 02/25/21 02/25/21 Range/Units 12:13 12:13 WBC (4.8-10.8) K/uL RBC (4.7-6.1) M/uL Hgb (14.0-18.0) g/dL Hct (42-52) % MCV (80-100) fL MCH (25-34) pg MCHC (32-36) g/dL RDW Std Deviation (36.4-46.3) fL RDW Coeff of Marcellus (11.5-14.5) % Plt Count (130-400) K/uL MPV (7.4-10.4) fL Immature Gran % (Auto) % Neut % (Auto) % Lymph % (Auto) % Kent % (Auto) % Eos % (Auto) % Baso % (Auto) % Neut # (Auto) (1.4-6.5) K/uL Lymph # (Auto) (1.2-3.4) K/uL Kent # (Auto) (0.11-0.59) K/uL Eos # (Auto) (0-0.5) K/uL Baso # (Auto) (0-0.2) K/uL Immature Gran # (Auto) (0.00-0.02) K/uL Sodium (136-145) mmol/L Potassium (3.5-5.1) mmol/L Chloride (98-107) mmol/L Carbon Dioxide (21-32) mmol/L Anion Gap (3-11) BUN (7-18) mg/dl Creatinine (0.6-1.4) mg/dl Est Cr Clr Drug Dosing ml/min Est GFR ( Amer) ml/min Est GFR (Non-Af Amer) ml/min BUN/Creatinine Ratio (10-20) Glucose (70-99) mg/dl Calcium (8.5-10.1) mg/dl Total Bilirubin (0.2-1) mg/dl AST (15-37) U/L ALT (12-78) U/L Alkaline Phosphatase (45-117) U/L Total Protein (6.4-8.2) gm/dl Albumin (3.4-5.0) gm/dl Globulin (2.5-4.0) gm/dl Albumin/Globulin Ratio (0.9-2) Lipase (73-393) U/L Urine Color Urine Appearance (Clear) Urine pH (4.5-7.5) Ur Specific Hop[place] (1.000-1.030) Urine Protein (Negative) Urine Glucose (UA) (Negative) Urine Ketones (Negative) Urine Blood (Negative) Urine Nitrite (Negative) Urine Bilirubin (Negative) Urine Urobilinogen (Negative) Ur Leukocyte Esterase (Negative) Urine WBC (Auto) (0-5) /hpf Urine RBC (Auto) (0-4) /hpf U Hyaline Cast (Auto) (0-5) /lpf U Epithel Cells (Auto) (0-5) /lpf Urine Bacteria (Auto) (Negative) COVID-19 Eval Order Covid19 at [facility] SARS-CoV-2 (PCR) NEGATIVE (Negative) Imaging Data Attestation: I personally reviewed and interpreted this imaging study as follows: My Impression: My interpretation of a noncontrast CT of the abdomen and pelvis does not show any acute findings such as obstruction, free air, appendicitis, diverticulitis or other acute findings. Radiologist report was also reviewed. Radiologist's Impression: Abdomen/Pelvis CT 02/25/21 08:[address] WITH IV CONTRAST CT DOSE: 745.23 mGycm HISTORY: Acute generalized abdominal pain with nausea and vomiting abd pain TECHNIQUE: Multiaxial CT images of the abdomen and pelvis were performed following the IV administration of 100 cc of Optiray, A dose lowering technique was utilized adhering to the principles of ALARA. COMPARISON STUDY: CT abdomen and pelvis 11/22/2018 FINDINGS: The imaged inferior cardiac chambers are unremarkable. Clear lung bases. No pneumatosis or pneumoperitoneum. Benign-appearing unchanged 12 mm hypodense lesion of the peripheral superior spleen. Mild generalized pancreatic atrophy. Unremarkable adrenal glands. Contracted gallbladder. Unremarkable liver. Patency of the hepatic and portal veins. 1.7 cm cyst of the inferior pole left kidney. No hydronephrosis. Unremarkable urinary bladder and prostate. Aorta and IVC are within normal limits. No adenopathy. Surgical clips of the right inguinal tissues. No bowel obstruction or bowel wall thickening. Normal appendix. No ascites or mesenteric inflammation. Unremarkable soft tissues. No acute fracture. Prior posterior decompression with posterior interbody bashir and screw fusion and discectomy at L4-S1. There is no evidence of hardware complication. IMPRESSION: 1. No acute intra-abdominal or intrapelvic abnormality. 2. No bowel obstruction or bowel wall thickening. Normal appendix. ACT 112: Negative or not required by law. The above report was generated using voice recognition software. It may contain grammatical, syntax or spelling errors. Electronically signed by: Christo Mack M.D. 02/25/2021 9:55 AM Blood Pressure Blood Pressure Findings: Normal blood pressure MDM Narrative Patient presents to the emergency department with complaint of dehydration, nausea and vomiting for the past 4 days. The patient is notably hypokalemic, and warrants admission for potassium repletion. The patient was hydrated with 2 L of normal saline, and was also started on oral potassium and a K rider for potassium repletion. CT imaging does not show any acute intra-abdominal findings. Impression & Plan Hypokalemia, Intractable nausea and vomiting Discharge Plan Visit Data Chief Complaint: Vomiting Stated Complaint: VOMITING SINCE MON NIGHT,DEHYDRATED ED Provider: Prem Armenta ED Midlevel Provider: Luke Rick Discharge Problem: Hypokalemia, Intractable nausea and vomiting Forms Stand Alone Forms: My [employer] Prescriptions Prescriptions: No Action No Known Home Medications RF: 0
[2021-02-25] MEDS: POTASSIUM CHLORIDE / WTR 10 MEQ/100 ML PLCT IV SCH ×2 (12:09→13:09)
--- NOTE | 2021-02-25 12:19 | History & Physical Report ---
Date of Service February 25, 2021 Assessment & Plan (1) Intractable nausea and vomiting: Likely gastroenteritis, compounded with mild dehydration Admit to a nonmonitored bed Hydrate with normal saline IV repletion of potassium, will recheck later this afternoon and tomorrow morning Symptomatic treatment with Zofran Start clear liquids, can advance as tolerated (2) Hypokalemia: Likely secondary to ongoing vomiting IV repletion of potassium as noted above History of Present Illness Chief Complaint: Intractable nausea and vomiting Primary Care Provider: Kvng Gilliam Jr, This is a 30-year-old male with past medical history of previous back fusion that presents today with intractable nausea vomiting. Patient is good historian. Patient tells me that he was doing well until the evening of 02/22. The day before he ate attended his brothers sirisha and had grilled steak but no other questionable food items and everyone else the radhae felt fine. The evening of 02/22, he started having some nausea along with vomiting. He had subjective fever but did not take his temperature. He has mild crampy abdominal pain. He had no diarrhea but noticed some constipation. Over the course of the next 3 days he continued have nausea vomiting. He had no tolerance for any p.o.'s including liquids. He did have a small amount of cereal this morning but vomited approximately 50% of this. He did have a formed bowel movement this morning. He denies any chest pain, palpitations, or other symptoms not noted above. He is in no acute distress, does tell me he feels a little better after 1 L of normal saline was administered in the emergency room. Allergies Allergy/AdvReac Type Severity Reaction Status Date / Time Penicillins Allergy Unknown RXN A Verified 11/22/18 13:03 BABY, HIS MOM SAYS HE IS NOT ALLERGIC Home Medications Medication Instructions Recorded Confirmed Type No Known Home Medications 11/22/18 02/25/21 History Past Med/Surg History Medical History Hx of hemorrhoids No significant past medical history Obese Surgical History History of lumbar fusion Hx of hernia repair Family History Other Colon cancer Diverticulitis Ulcerative colitis Social History Smoking Status: Never smoker Hx Alcohol Use: No Hx Substance Use: No Preferred Language: Swedish Communication Ability: Effective Assistant [employer] Required: No Beliefs That Will Affect Care: None marital status: Single Current Living Situation: Parent and Family current occupational status: employed Feels Safe at Home: Yes Assistive Devices: None Review of Systems Constitutional: + fever, + body aches and + anorexia; no chills, no weakness, no weight loss and no weight gain Eyes: as per Subjective / HPI Respiratory: no cough, no chest congestion, no dyspnea and no dyspnea on exertion Cardiovascular: no chest pain, no orthopnea, no palpitations, no lightheadedness and no edema Gastrointestinal: + abdominal pain, + bloating, + nausea and + vomiting; no coffee ground emesis, no hematemesis, no constipation and no diarrhea/loose stools Musculoskeletal: no back pain, no neck pain, no joint pain, no stiffness and no myalgia Integumentary: no rash Neurologic: no gait abnormality, no unsteadiness, no falls and no generalized weakness Physical Exam Constitutional: + ill appearing (Mild) and cooperative; no acute distress Neck: trachea midline, no thyromegaly Respiratory: normal respiratory effort Auscultation: lungs clear to au scultation bilaterally; no crackles, no rales, no rhonchi and no wheezes Cardiovascular: Rate/Rhythm: regular rate and regular rhythm Heart Sounds: normal S1 and normal S2; no murmur Gastrointestinal (Abdomen): Inspection/Auscultation: abdomen normal to inspection Percussion/Palpation: abdomen soft; abdomen nontender, no guarding, abdomen not rigid and no hepatosplenomegaly Skin: no rashes, warm and dry Results & Data Results & Data ([facility]) Vital Signs (Past 12 Hours) Vital Signs Temp Pulse Pulse Resp BP BP Pulse Ox 02/25/21 10:25 63 18 132/86 97 02/25/21 08:15 36.9 C 75 18 132/90 98 Diagnostic Findings ABDOMEN AND PELVIS CT WITH IV CONTRAST CT DOSE: 745.23 mGycm HISTORY: Acute generalized abdominal pain with nausea and vomiting abd pain TECHNIQUE: Multiaxial CT images of the abdomen and pelvis were performed fo llowing the IV administration of 100 cc of Optiray, A dose lowering technique was utilized adhering to the principles of ALARA. COMPARISON STUDY: CT abdomen and pelvis 11/22/2018 FINDINGS: The imaged inferior cardiac chambers are unremarkable. Clear lung bases. No pneumatosis or pneumoperitoneum. Benign-appearing unchanged 12 mm hypodense lesion of the peripheral superior spleen. Mild generalized pancreatic atrophy. Unremarkable adrenal glands. Contracted gallbladder. Unremarkable liver. Patency of the hepatic and portal veins. 1.7 cm cyst of the inferior pole left kidney. No hydronephrosis. Unremarkable urinary bladder and prostate. Aorta and IVC are within normal limits. No adenopathy. Surgical clips of the right inguinal tissues. No bowel obstruction or bowel wall thickening. Normal appendix. No ascites or mesenteric inflammation. Unremarkable soft tissues. No acute fracture. Prior posterior decompression with posterior interbody bashir and screw fusion and discectomy at L4-S1. There is no evidence of hardware complication. IMPRESSION: 1. No acute intra-abdominal or intrapelvic abnormality. 2. No bowel obstruction or bowel wall thickening. Normal appendix. PG Care Time/CCT Total # of Minutes Spent Total Time Spent with Patient: Total time spent is greater than 50% in coor dination of care (as documented) at patient's floor/unit and/or counseling patient: Coding Level of Care Code 04999 Initial Inpt Care Lvl 3 Diagnoses Intractable nausea and vomiting R11.2 Hypokalemia E87.6
[2021-02-25] MEDS ORDERED: ONDANSETRON INJ 2 MG/ML 2 ML VIAL IV PRN (15:53)
[2021-02-25] MEDS ORDERED: ACETAMINOPHEN 325 MG TAB PO PRN (15:53)
[2021-02-25] MEDS: SODIUM CHLORIDE 0.9% 1000ML 1,000 ML IV SCH (16:38)
[2021-02-25 18:12] LABS: BUN Creatinine Ratio 18.8 (10-20); Calcium 8.8 mg/dl (8.5-10.1); Creatinine Clr Calc Pharmacy 132.3 ml/min; Est GFR (African American) 130.5 ml/min; Est GFR (Non-African American) 112.6 ml/min; Potassium 3.6 mmol/L (3.5-5.1)
[2021-02-26] MEDS: SODIUM CHLORIDE 0.9% 1000ML 1,000 ML IV SCH (02:33)
[2021-02-26 07:45] LABS: Basophils # (auto) 0.01 K/uL (0-0.2); Basophils % (auto) 0.1 %; Eosinophils # (auto) 0.01 K/uL (0-0.5); Eosinophils % (auto) 0.1 %; Hematocrit (blood only) 41.2 % (42-52); Hemoglobin 14.5 g/dL (14.0-18.0); Immature Granulocytes # (auto) 0.03 K/uL (0.00-0.02); Immature Granulocytes % (auto) 0.3 %; Lymphocytes # (auto) 1.31 K/uL (1.2-3.4); Lymphocytes % (auto) 11.3 %; Mean Corpuscular Hemoglobin 29.7 pg (25-34); Mean Corpuscular Hgb Conc 35.2 g/dL (32-36); Mean Corpuscular Volume 84.4 fL (80-100); Monocytes # (auto) 1.66 K/uL (0.11-0.59); Monocytes % (auto) 14.3 %; Neutrophils # (auto) 8.58 K/uL (1.4-6.5); Neutrophils % (auto) 73.9 %; Platelet Count 259 K/uL (130-400); RDW Coefficient of Variation 12.3 % (11.5-14.5); RDW Standard Deviation 37.6 fL (36.4-46.3); Red Blood Count 4.88 M/uL (4.7-6.1)
[2021-02-26 08:06] LABS: BUN Creatinine Ratio 21.1 (10-20); Calcium 8.3 mg/dl (8.5-10.1); Creatinine Clr Calc Pharmacy 156.7 ml/min; Est GFR (African American) 139.9 ml/min; Est GFR (Non-African American) 120.7 ml/min; Magnesium 2.2 mg/dl (1.8-2.4)
[2021-02-26] MEDS ORDERED: POTASSIUM CHLORIDE CRTAB 20 MEQ TABCR PO SCH (09:00)
--- NOTE | 2021-02-26 15:12 | Discharge Summary ---
Date of Service February 26, 2021 Admission HPI Per Admitting Provider This is a 30-year-old male with past medical history of previous back fusion that presents today with intractable nausea vomiting. Patient is good historian. Patient tells me that he was doing well until the evening of 02/22. The day before he ate attended his brothers [employer]isha and had grilled steak but no other questionable food items and everyone else the trav[place]cue felt fine. The evening of 02/22, he started having some nausea along with vomiting. He had subjective fever but did not take his temperature. He has mild crampy abdominal pain. He had no diarrhea but noticed some constipation. Over the course of the next 3 days he continued have nausea vomiting. He had no tolerance for any p.o.'s including liquids. He did have a small amount of cereal this morning but vomited approximately 50% of this. He did have a formed bowel movement this morning. He denies any chest pain, palpitations, or other symptoms not noted above. He is in no acute distress, does tell me he feels a little better after 1 L of normal saline was administered in the emergency room. Admission Exam Per Admitting Provider Constitutional: + ill appearing (Mild) and cooperative; no acute distress Neck: trachea midline, no thyromegaly Respiratory: normal respiratory effort Auscultation: lungs clear to auscultation bilaterally; no crackles, no rales, no rhonchi and no wheezes Cardiovascular: Rate/Rhythm: regular rate and regular rhythm Heart Sounds: normal S1 and normal S2; no murmur Gastrointestinal (Abdomen): Inspection/Auscultation: abdomen normal to inspection Percussion/Palpation: abdomen soft; abdomen nontender, no guarding, abdomen not rigid and no hepatosplenomegaly Skin: no rashes, warm and dry Principal Diagnosis Gastroenteritis vs. cannabis hyperemesis Discharge Exam Constitutional WD/WN, vitals as above Respiratory normal respiratory effort, lungs clear to auscultation Cardiovascular RRR, no murmur, no edema Gastrointestinal (Abdomen) normal bowel sounds, soft, nontender, no hepatosplenomegaly Discharge Data Allergies Allergy/AdvReac Type Severity Reaction Status Date / Time Penicillins Allergy Unknown RXN A Verified 11/22/18 13:03 BABY, HIS MOM SAYS HE IS NOT ALLERGIC Consultations 02/25/21 11:41 ED Decision to Admit Stat Ordered Studies 02/25/21 08:31 CT abd pelvis IV con only Stat IMPRESSION: 1. No acute intra-abdominal or intrapelvic abnormality. 2. No bowel obstruction or bowel wall thickening. Normal appendix. Hospital Course (1) Intractable nausea and vomiting: Efraín Chandra is a 30 year old male observed overnight at [facility] from February 25-2020 due to intractable nausea and vomiting. He was diagnosed with suspected gastroenteritis and recovered overnight and is now tolerating regular low fiber meals. He was discharged on ondansetron as needed for nausea. He does use medical marijuana and was advised if this keeps recurring it may be due cannabis hyperemesis syndrome especially if there is a correlation with his use. (2) Hypokalemia: Total Time Total Time Spent Total Time Spent (In Minutes): 35 Total Time Includes: Examination of the Patient, Discharge Planning and Medication Reconciliation Discharge Plan Discharge Items Patient Disposition: Home - Self-Care Reason For Visit: INTRACTABLE N/V Discharge Diagnosis: Gastroenteritis Activity: Resume your previous activity Non-emergency contact: Primary Care Provider Call non-emergency contact if: you have any medication questions and your symptoms worsen Follow-up/Referrals: Kvng Gilliam Jr, [Primary Care Provider] - 03/09/21 2:30 pm Diet: Low Fiber Addtl Attending Provider Instructions: You were observed overnight at [facility] from February 25-2020 due to intractable nausea and vomiting. You are diagnosed with suspected gastroenteritis and provided with ondansetron for nausea on discharge. Please follow up with your primary care provider if symptoms are ongoing for more than 1-2 days. Continue to stay well hydrated with pedialyte as your potassium level were low on admission. Pending Studies at Discharge: No Stand-Alone Forms: My [facility], Smoking Cessation Medications and DC Order Prescriptions: New ondansetron 4 mg tablet,disintegrating 4 mg PO Q6H PRN (Reason: nausea and vomiting) Qty: 10 RF: 0 Discharge Orders: Discharge Order (Routine); Ordered 02/26/21 Ordered By: Horace Arvizu/Other Patient Handouts: Nausea Vomit Control, ED Food Poison Or Gastroenteritis Admission Data Admit Date/Time: 02/25/21 12:19 Attending Provider: Horace Alves Admit Provider: Kamar Norwood Primary Care Provider: Kvng Gilliam Jr Other Providers: Kamar Norwood Other Interventions: Discharge Summary Assessment (RN) Last Done: 02/26/21 15:04 Coding Level of Care Code D/C Day Management >30 mins Diagnoses Intractable nausea and vomiting R11.2 Hypokalemia E87.6
== END 2021-02-26 16:04 | disposition home or self-care (01) | DRG 392 ==
LOC: ED 08:07 → SUATTDRO 12:19 → 3W 12:19